=== PATIENT | female | born 1990 | race Caucasian/White ===

== ENCOUNTER 2017-12-13 17:08 | Emergency (ER) | payer MEDICAID, SELFPAY ==
[2017-12-13 17:09] VITALS: BP 103/60; PULSE 75; RESP 16; TEMP 37.4; O2SAT 99; BMI 29.2
--- NOTE | 2017-12-13 18:13 | ED.RN ---
rn in room to start iv and gather labs. Iv successful, pt asked not have the needle dug into her. As IV catheter was being inserted patient pulled back and Rn educated patient on the plastic catheter being larger then the needle it will hurt. Pt complaining nurse is digging needle , explained it is out. no blood being drawn. iv flushed with 10cc of ns and no redness, swelling or pain to patient at this time. told patient i would attempt blood from iv and not poking again. RN leaves room , on entering again pt pulled out iv and said i don't no want care from here i have the right to refuse and i am
--- NOTE | 2017-12-13 18:30 | ED.RN ---
this rn entered pt room to address pt concerns about the iv. pt voiced concerns that she didn't like where the iv was placed and took it out. informed pt that she would need to have another iv started if she chose to receive care. pt stated she understood and would allow this rn to attempt. this rn attempted to start an iv in the r hand, got initial blood return, and when the catheter was being advanced forward pt pulled her arm back and began yelling to take it out. informed pt another iv attempt would have to be made. pt states she cannot tolerate the catheter being advanced in her skin. informed pt this had to be done to insure catheter was in the vein. pt refused. stated she wanted to leave against medical advice. dr barrera to bedside. pt again voiced understanding, states she still wants to leave. pt signed ama papers and ambulated out of department without difficulty.
--- NOTE | 2017-12-14 00:33 | ED.VISSUMM ---
- ER Visit Summary Date of Service: 12/13/17 Chief Complaint: Vaginal bleeding History of Present Illness: The patient is a 27 F who had a 3 months ago. Patient states she had one. Approximate month ago that was very light. She started bleeding again last night with cramping and passing some clots. Bleeding has increased and states that she is bleeding through a pad in less than an hour. She felt somewhat lightheaded last evening. She states the press breaker at her HSE MANAGER's office advised her to come in. She currently has ParaGard. Physical Examination: Signs are unremarkable. She is not tachycardic. She is sitting upright in bed no acute distress. Heart is regular rate and rhythm. Lung sounds are clear. Abdomen is soft with no focal tenderness. scar is well-healed. Test Results: [] Emergency Department Course and Treatment: Plan had been to obtain blood work to evaluate for anemia as well as an ultrasound. When nursing staff started the IV patient became very anxious and pulled away. She claimed that the nurse was digging and causing severe pain and would not stop when asked. A second nurse went in to draw blood but had similar experience. At this time patient states that her anxiety is too bad and she needs to leave the emergency room. She understands that at this time I cannot evaluate her for anemia. Her vital signs are stable. She is encouraged to return if needed. I did speak with Dr. Gamboa, on-call for her HSE MANAGER office. I did recommend the patient call them tomorrow with an update on the degree of her bleeding. Treatment Plan: [] Disposition: AMA Impression: Menorrhagia This note was generated with [employer] dictation software. It may contain incorrect words, spelling, and punctuation that were not noted in review of the chart prior to signing ED Disposition - Plan for ED Patient: Disposition: Against Medical Advice Chief Complaint: Vag Bleeding Referrals: Care Physician,No Primary [Primary Care Provider] -
--- NOTE | 2017-12-14 00:36 | ED.DCSUM_ITS ---
- ER Visit Summary Date of Service: 12/13/17 Chief Complaint: Vaginal bleeding History of Present Illness: The patient is a 27 F who had a 3 months ago. Patient states she had one. Approximate month ago that was very light. She started bleeding again last night with cramping and passing some clots. Bleeding has increased and states that she is bleeding through a pad in less than an hour. She felt somewhat lightheaded last evening. She states the winchman/crane operator at her CLOTH PRINTER HELPER's office advised her to come in. She currently has ParaGard. Physical Examination: Signs are unremarkable. She is not tachycardic. She is sitting upright in bed no acute distress. Heart is regular rate and rhythm. Lung sounds are clear. Abdomen is soft with no focal tenderness. scar is well-healed. Test Results: [] Emergency Department Course and Treatment: Plan had been to obtain blood work to evaluate for anemia as well as an ultrasound. When nursing staff started the IV patient became very anxious and pulled away. She claimed that the nurse was digging and causing severe pain and would not stop when asked. A second nurse went in to draw blood but had similar experience. At this time patient states that her anxiety is too bad and she needs to leave the emergency room. She understands that at this time I cannot evaluate her for anemia. Her vital signs are stable. She is encouraged to return if needed. I did speak with Dr. Gamboa, on-call for her CLOTH PRINTER HELPER office. I did recommend the patient call them tomorrow with an update on the degree of her bleeding. Treatment Plan: [] Disposition: AMA Impression: Menorrhagia This note was generated with [employer] dictation software. It may contain incorrect words, spelling, and punctuation that were not noted in review of the chart prior to signing ED Disposition - Plan for ED Patient: Disposition: Against Medical Advice Chief Complaint: Vag Bleeding Referrals: Care Physician,No Primary [Primary Care Provider] -
== END 2017-12-13 18:38 | disposition left against medical advice (07) ==
LOC: ED 18:03
PROVIDERS: Emergency Provider Emergency Medicine
DX: N92.0 Excessive and frequent menstruation with regular cycle (principal); Z87.891 Personal history of nicotine dependence
CPT/HCPCS: 99282; A4216

== ENCOUNTER 2018-01-19 21:43 | Emergency (ER) | payer MEDICAID, SELFPAY ==
[2018-01-19 21:44] VITALS: BP 120/69; PULSE 66; RESP 16; TEMP 36.6; O2SAT 97; BMI 29.8
--- NOTE | 2018-01-19 22:00 | ED.VISSUMM ---
- ER Visit Summary Date of Service: 01/19/18 Chief Complaint: Dental pain History of Present Illness: The patient is a 27 F presents to the emergency department dental pain. Patient had this off and on for the past few years. She states she has a difficult time finding a dentist who will do sedation without local anesthesia first because she cannot do needles. She states that over the past month she has had increasing pain in the right lower jaw but over the past week it has worsened. She describes hot and cold sensitivity. She denies any fevers or chills. She has been taking Tylenol with some improvement. Physical Examination: Afebrile, vitals unremarkable. Well-appearing female no acute distress. Patient is widespread dental disease. There is significant cavity with complete erosion of the tooth #30. There is some tenderness in the gumline but no focal abscess. No Ventura angina. No trismus or stridor. Test Results: [] Emergency Department Course and Treatment: The patient has dental infection. I did summer camp counselor her she is likely going to need this tooth be extracted or this will continue to recur. There is no evidence of abscess or Ventura angina. The patient will be started on anti-inflammatories and antibiotics. She is counseled to follow-up with dentistry as this is going to need formal treatment. The patient will be discharged home. Treatment Plan: [] Disposition: Discharge Impression:. Periapical abscess tooth 30 This note was generated with [facility] dictation software. It may contain incorrect words, spelling, and punctuation that were not noted in review of the chart prior to signing ED Disposition - Plan for ED Patient: Chief Complaint: Dental Instructions: ED Cavity Dental Prescriptions: Naproxen [Naprosyn] 500 mg PO BID #20 tab Penicillin V Potassium 500 mg PO 4X/DAY #40 tab Referrals: Care Physician,No Primary [Primary Care Provider] -
[2018-01-19] MEDS: Naproxen 250 MG Tablet 500 MG PO (22:28)
[2018-01-19] MEDS: Penicillin Vk 250 MG Tablet 500 MG PO (22:28)
[2018-01-19 22:30] VITALS: BP 118/60; PULSE 62; RESP 18; O2SAT 96
== END 2018-01-19 22:30 | disposition home or self-care (01) ==
LOC: ED 22:12
PROVIDERS: Emergency Provider Emergency Medicine
DX: K04.7 Periapical abscess without sinus (principal); K08.89 Other specified disorders of teeth and supporting structures; Z72.0 Tobacco use
CPT/HCPCS: 99283

== ENCOUNTER 2018-02-21 05:07 | Emergency (ER) | payer MEDICAID, SELFPAY ==
[2018-02-21 05:09] VITALS: BP 137/75; PULSE 50; RESP 18; TEMP 36.4; O2SAT 99; BMI 30.9
--- NOTE | 2018-02-21 05:15 | ED.VISSUMM ---
- ER Visit Summary Date of Service: 02/21/18 Chief Complaint: Dental pain History of Present Illness: The patient is a 27 F presents to the emergency department with dental pain. Patient had the symptoms for months. She states she cannot find a dentist that does sedation for extraction. She states that the tooth that she had large cavity has finally broken off. She tried to remove with her fingers and had some bleeding and increasing pain. She is already on amoxicillin. She denies any trouble speaking or swallowing. She has not taken anything for her pain. Physical Examination: Relatively unremarkable. The patient does have some mild erythema at tooth 29 and 30. There is complete loss of tooth. There is no focal abscess. Submental space is soft. There is no low-grade angina. There was no trismus or stridor. Test Results: [] Emergency Department Course and Treatment: The patient has large cavity that was finally eroded. She is already on antibiotics. There is no Ventura angina. The patient will continue her antibiotics. She will be given 24 hours of analgesic pain control and anti-inflammatories. She was counseled that she needs to follow-up with dentistry to have formal extraction or she will continue to keep having issues. Treatment Plan: [] Disposition: Discharge Impression: 1. Dental pain This note was generated with [employer] dictation software. It may contain incorrect words, spelling, and punctuation that were not noted in review of the chart prior to signing ED Disposition - Plan for ED Patient: Chief Complaint: Dental Instructions: ED Tooth Pain Prescriptions: Naproxen [Naprosyn] 500 mg PO BID PRN #20 tab Referrals: Care Physician,No Primary [Primary Care Provider] -
[2018-02-21] MEDS: HYDROcodone Bitartrate/Apap 5/325 Tablet PO ×2 (05:24→05:25)
[2018-02-21 05:35] VITALS: RESP 18
== END 2018-02-21 05:35 | disposition home or self-care (01) ==
LOC: ED 05:31
PROVIDERS: Emergency Provider Emergency Medicine
DX: K02.9 Dental caries, unspecified (principal); K08.89 Other specified disorders of teeth and supporting structures; Z72.0 Tobacco use; Z79.2 Long term (current) use of antibiotics
CPT/HCPCS: 99283

== ENCOUNTER 2018-04-05 07:50 | Emergency (ER) | payer MEDICAID, SELFPAY ==
--- NOTE | 2018-04-05 07:50 | DT_ITS ---
This patient was seen during an EMR downtime April 03, 2018 - April 10, 2018. This patient may have a combination of paper and electronic documentation or all paper documentation. All documentation is viewable within the e-chart portion of [facility] for each patient visit.
== END 2018-04-05 08:20 | disposition home or self-care (01) ==
LOC: ED 04-06 16:11
PROVIDERS: Emergency Provider Emergency Medicine
DX: K02.9 Dental caries, unspecified (principal); K04.7 Periapical abscess without sinus
CPT/HCPCS: 99282

== ENCOUNTER 2018-07-06 18:21 | Emergency (ER) | payer MEDICAID, SELFPAY ==
[2018-07-06 18:22] VITALS: BP 122/72; PULSE 68; RESP 16; TEMP 36.8; O2SAT 95
--- NOTE | 2018-07-06 19:21 | ED.VISSUMM ---
- ER Visit Summary Date of Service: 07/06/18 Chief Complaint: Rash History of Present Illness: The patient is a 27 F with no primary care physician. She reports that she has a rash that began on the back of her head yesterday. It is now in her neck and her armpit. She denies any other symptoms. No fever, chills, nausea, vomiting, or other constitutional symptoms. Physical Examination: Vitals: Stable. Afebrile. General: Well-nourished and well-developed. Head: Normocephalic atraumatic. Neck: Supple, no lymphadenopathy. No JVD. Nontender. Cardiovascular: Regular rate and rhythm. No murmurs. Respiratory: No respiratory distress. Clear to auscultation bilaterally. Abdominal: Soft, nontender, nondistended, normal bowel sounds. No guarding, rebound, or peritoneal signs. Back: Nontender. Extremities: Nontender, no edema. Skin: Approximately dime sized superficial ulcers with minimal surrounding erythema in her hairline and posterior neck. There is no induration or fluctuance to suggest abscess.. Neurologic: Alert and oriented ?3. Cranial nerves II through XII are intact. Normal strength and sensation. Psych: Normal affect. Emergency Department Course and Treatment: She reports that multiple family members have a similar rash. They do have animals in the home. Treatment Plan: At this time I do not feel that patient needs to be placed on oral antibiotics. She will be given Bactroban ointment. Instructed to follow-up the [facility] in 3-5 days not improving. Return to the emergency department for any worsening symptoms. Disposition: To home in improved and stable condition. Impression: 1. Rash, uncertain cause. This note was generated with [employer] dictation software. It may contain incorrect words, spelling, and punctuation that were not noted in review of the chart prior to signing ED Disposition - Plan for ED Patient: Disposition: Home or Assisted Living Chief Complaint: Rash Instructions: ED Dermatitis Non Specific Rash Prescriptions: Mupirocin [Bactroban] 1 applic TOPICAL TID #1 tube Referrals: Carolyn Brown [NON-STAFF] - 2 Days for wound check
[2018-07-06 19:35] VITALS: BP 118/70; PULSE 65; RESP 14; O2SAT 98
== END 2018-07-06 19:41 | disposition home or self-care (01) ==
LOC: ED 19:11
PROVIDERS: Emergency Provider Emergency Medicine
DX: R21 Rash and other nonspecific skin eruption (principal)
CPT/HCPCS: 99282

== ENCOUNTER 2018-08-14 21:51 | Emergency (ER) | payer MEDICAID, SELFPAY ==
[2018-08-14 21:52] VITALS: BP 107/66; PULSE 70; RESP 16; TEMP 36.2; O2SAT 98; BMI 32.1
--- NOTE | 2018-08-14 22:09 | ED.VISSUMM ---
- ER Visit Summary Date of Service: 08/14/18 Chief Complaint: Dental pain History of Present Illness: The patient is a 28 F patient complains of left lower last molar dental pain. She was due to have it removed but missed her appointment secondary to insurance. She has no fever chills no difficulty swallowing. Physical Examination: Otherwise normal exam she has normal soft palate there is tenderness over the last molar on the left lower side. There is decay. No periapical abscess. Emergency Department Course and Treatment: Patient will be treated with penicillin and discharged with a prescription for penicillin and Naprosyn. Discharge stable condition Impression: [Odontalgia] This note was generated with [employer] dictation software. It may contain incorrect words, spelling, and punctuation that were not noted in review of the chart prior to signing ED Disposition - Plan for ED Patient: Disposition: Home or Assisted Living Chief Complaint: Dental Instructions: ED Tooth Pain Prescriptions: Naproxen [Naprosyn] 500 mg PO BID PRN #20 tab Penicillin Vk [Pen-Vee K 250MG] 250 mg PO 4X/DAY #40 tab Referrals: Care Physician,No Primary [Primary Care Provider] - 3-5 Days
--- NOTE | 2018-08-14 22:16 | ED.DCSUM_ITS ---
- ER Visit Summary Date of Service: 08/14/18 Chief Complaint: Dental pain History of Present Illness: The patient is a 28 F patient complains of left lower last molar dental pain. She was due to have it removed but missed her appointment secondary to insurance. She has no fever chills no difficulty swallowing. Physical Examination: Otherwise normal exam she has normal soft palate there is tenderness over the last molar on the left lower side. There is decay. No periapical abscess. Emergency Department Course and Treatment: Patient will be treated with penicillin and discharged with a prescription for penicillin and Naprosyn. Discharge stable condition Impression: [Odontalgia] This note was generated with [employer] dictation software. It may contain incorrect words, spelling, and punctuation that were not noted in review of the chart prior to signing ED Disposition - Plan for ED Patient: Disposition: Home or Assisted Living Chief Complaint: Dental Instructions: ED Tooth Pain Prescriptions: Naproxen [Naprosyn] 500 mg PO BID PRN #20 tab Penicillin Vk [Pen-Vee K 250MG] 250 mg PO 4X/DAY #40 tab Referrals: Care Physician,No Primary [Primary Care Provider] - 3-5 Days
[2018-08-14] MEDS: Penicillin Vk 250 MG Tablet 500 MG PO (22:17)
[2018-08-14 22:26] VITALS: RESP 17
== END 2018-08-14 22:26 | disposition home or self-care (01) ==
LOC: ED 22:24
PROVIDERS: Emergency Provider Emergency Medicine
DX: K08.89 Other specified disorders of teeth and supporting structures (principal); K02.9 Dental caries, unspecified
CPT/HCPCS: 99283

== ENCOUNTER 2018-08-25 13:18 | Emergency (ER) | payer MEDICAID, SELFPAY ==
[2018-08-25 13:19] VITALS: BP 111/65; PULSE 67; RESP 18; TEMP 36.5; O2SAT 97; BMI 31.8
--- NOTE | 2018-08-25 14:45 | ED.VISSUMM ---
- ER Visit Summary Date of Service: 08/25/18 Chief Complaint: Psychiatric evaluation History of Present Illness: The patient is a 28 F presenting for a psychiatric evaluation. Patient states that today she was in a court proceedings where she had child protective services take her 5 children from her. She reports that she was feeling down about this. She was at the library, and posted something on Facebook that she wanted to end her life. Apparently [employer] called police, police arrived, and the patient was brought for further evaluation. Patient states that she was looking for attention and in no way shape or form is suicidal. She is not intoxicated denies any ingestions currently. She is never had any prior suicide attempts. Physical Examination: Vital signs are within normal limits, patient is afebrile. General: Patient is well-nourished well-developed and in no acute distress. Head: Normocephalic, atraumatic Eyes: Pupils equal round and reactive bilaterally, extra occular motion intact bialterally ENT: Moist mucous membranes Neck: Supple, no lymphadenopathy, no JVD, no meningismus CVS: Heart regular rate and rhythm, no murmurs, rubs or gallops, radial pulses 2+ bilaterally Resp: Respirations nondistressed, lung sounds clear bilaterally Abdomen: Soft, nontender, nondistended, no palpable masses, normal bowel sounds Back: Nontender Extremities: Nontender, atraumatic, active full range of motion, no peripheral edema Skin: warm, no rashes, no petechia Neuro: Alert and oriented x 4, CN 2-12 intact, no lateralizing neurological defecits Psyc: Normal affect, no suicidal or homicidal ideation, good insight and good judgment Test Results: None indicated Emergency Department Course and Treatment: Patient presented for psychiatric evaluation. Patient appears lucid, is not intoxicated, has good insight and good judgment, and I do not feel that she is a risk to herself or others at this point. I do not believe that workup or discussion with crisis is necessary at this point. Patient was discharged. Disposition: Discharge Impression: 1. Adjustment disorder This note was generated with [employer] software. It may contain incorrect words, spelling, and punctuation that were not noted in review of the chart prior to signing ED Disposition - Plan for ED Patient: Disposition: Home or Assisted Living Chief Complaint: Suicidal Diagnosis: Adjustment disorder Instructions: ED Adjustment Disorder Additional Instructions: Followup as needed
[2018-08-25 15:17] VITALS: BP 112/68; PULSE 65; RESP 17; RESP 18; O2SAT 100
== END 2018-08-25 15:18 | disposition home or self-care (01) ==
PROVIDERS: Emergency Provider Emergency Medicine
DX: F43.20 Adjustment disorder, unspecified (principal)
CPT/HCPCS: 99283

== ENCOUNTER 2018-12-02 05:01 | Emergency (ER) | payer MEDICAID, SELFPAY ==
[2018-12-02 05:02] VITALS: BP 116/75; PULSE 65; RESP 24; TEMP 36.8; O2SAT 94; BMI 32.5
[2018-12-02 05:05] VITALS: BP 116/75; PULSE 65; RESP 24; TEMP 36.8; O2SAT 94
--- NOTE | 2018-12-02 05:24 | RAD_ITS ---
STUDY: X-RAY CHEST REASON FOR EXAM: Female, 28 years old. Cough TECHNIQUE: 2 views COMPARISON: None. FINDINGS: There are patchy acinar densities in the right lower lobe suggestive of a pneumonia. The left lung is clear. The heart is normal. There are no pleural effusions. Normal visualized thoracic spine. Normal visualized ribs, clavicles, and shoulders. There is no demonstrated abnormality of the visualized soft tissue structures of the upper abdomen. RAD/Chest PA and Lateral IMPRESSION: Early changes of right lower lobe pneumonia Electronically Signed: Dileep Gallegos MD at 6:32 EST Tel , Service support ,
--- NOTE | 2018-12-02 05:31 | ED.VISSUMM ---
- ER Visit Summary Date of Service: 12/02/18 Chief Complaint: Cough History of Present Illness: The patient is a 28 F presents to the emergency department with shortness of breath and cough. Patient states that symptoms began on Tuesday when she developed a hoarse voice that was very deep. She then developed a cough and then began to have phlegm. She had a headache which was resolved. No rhinorrhea. She notes chills but no fevers. He is a non-smoker. Physical Examination: Afebrile vital signs stable Gen: Well-nourished well-developed Head: Normocephalic atraumatic Eyes: Perrl EOMI ENT: TMs clear no rhinorrhea moist mucous membranes Neck: Supple no lymphadenopathy no JVD nontender CVS: Regular rate rhythm no murmurs normal S1-S2 Respiratory: No distress diminished breath sounds bilaterally. Slight rhonchi that improve with cough chest nontender Abdomen: Soft nontender nondistended normal bowel sounds no masses Back: Nontender Extremity: Nontender no edema Skin: Normal color no rash Neuro: alert orientated ?3 CN II-XII intact normal strength sensation reflexes gait cerebellar Psych: Normal affect normal mood Test Results: Two-view chest x-ray was obtained. This demonstrated increased markings in the right upper lobe when compared to October 08, 2017. Emergency Department Course and Treatment: Patient received a breathing treatment. Her lung sounds are improved and her coughing is somewhat decreased. Patient will be treated as a community-acquired pneumonia. I believe she can be safely discharged home and treated there. I will write for albuterol MDI as well as doxycycline. Impression: 1. Pneumonia This note was generated with [employer] dictation software. It may contain incorrect words, spelling, and punctuation that were not noted in review of the chart prior to signing ED Disposition - Plan for ED Patient: Disposition: Home or Assisted Living Instructions: ED Pneumonia Adult Prescriptions: Albuterol Inhaler [Ventolin Hfa] 2 puff INHALATION Q4H PRN PRN #1 inhaler PRN Reason: Wheezing Doxycycline 100 mg PO BID #19 cap Referrals: Flip Small MD [STAFF PHYSICIAN] - 1 Week if not improving
[2018-12-02] MEDS: Ipratropium/Albuterol Sulfate 3 ML AMPUL.NEB INHALATION (05:36)
[2018-12-02 05:39] VITALS: PULSE 78; RESP 22
[2018-12-02] MEDS: Doxycycline 100 MG CAPSULE PO (06:25)
[2018-12-02 06:29] VITALS: RESP 16
== END 2018-12-02 06:29 | disposition home or self-care (01) ==
PROVIDERS: Emergency Provider Emergency Medicine
DX: J18.9 Pneumonia, unspecified organism (principal)
CPT/HCPCS: 71046; 94640; 99283

== ENCOUNTER 2019-11-29 18:39 | Emergency (ER) | payer MEDICAID, SELFPAY ==
[2019-11-29 18:40] VITALS: BP 140/70; PULSE 106; RESP 18; TEMP 35.9; O2SAT 98; BMI 32.5
--- NOTE | 2019-11-29 19:45 | RAD_ITS ---
STUDY: X-RAY CHEST REASON FOR EXAM: Female, 29 years old. Cough. Back pain when coughing and taking deep breaths. TECHNIQUE: PA and lateral views of the chest. COMPARISON: December 02, 2018. FINDINGS: The lungs are clear and expanded. There is no demonstrated pleural abnormality. Normal size heart. Normal mediastinum and cory. Normal visualized pulmonary arteries. Normal visualized aortic arch and descending thoracic aorta. Normal visualized thoracic spine. Normal visualized ribs, clavicles, and shoulders. There is no demonstrated abnormality of the visualized soft tissue structures of the upper abdomen. RAD/Chest PA and Lateral IMPRESSION: No acute cardiopulmonary disease. Electronically Signed: Armin Culp DO at 20:22 EST Tel [phone], Service support ,
--- NOTE | 2019-11-29 20:44 | ED.DCSUM_ITS ---
- ER Visit Summary Date of Service: 11/29/19 Chief Complaint: [Back pain] History of Present Illness: The patient is a 29 F [presents the emergency department with complaint of back pain that started last evening. Patient states that she was watching Netflix with a pillow propped behind her head and she developed a headache and subsequently developed pain in her neck and upper back. Patient took some Tylenol which resolved her headache but she continues to have pain in her neck and back when she moves. She denies any injury. She denies any paresthesias in the arms or legs. Patient also states that today she developed a sore throat and a runny nose as well as a cough. Eyes any fevers. Patient has no medical history.] Physical Examination: [HEENT-PERRLA, EOMI. Cranial nerves II through XII grossly intact. TMs clear. Mucous membranes moist. No adenopathy. No pharyn geal erythema noted. No exudates. Patient's tonsils have been removed. She has no anterior cervical lymphadenopathy noted. Cardiovascular-regular rate and rhythm without murmur or ectopy Lungs-clear to auscultation, chest wall stable without crepitus or subcu emphysema Abdomen-normoactive bowel sounds, soft, nontender, no rebound or rigidity, no peritoneal signs. Back exam-patient has tenderness palpation over the cervical paraspinal musculature as well as the thoracic and lumbar paraspinal musculature that seems to reproduce her pain. She has no bony tenderness on the thoracic or lumbar vertebrae. Negative straight leg raises. Deep tendon reflexes are plus 2 out of 4 bilaterally at the patella and Achilles. Patient has normal 5 extension. Extremities-intact ?4, normal range of motion, normal pulses, atraumatic] Test Results: [X-ray obtained was normal.] Emergency Department Course and Treatment: [Patient was ordered Toradol which she refused. I was I did give her ibuprofen and Norflex IM.] Treatment Plan: [Patient will be given a prescription for Naprosyn, Flexeril, and [place] for severe pain. Patient advised to follow-up with her primary care physician within next 3 to 5 days. I suspect she likely has a viral URI developing as well as back spasms.] Disposition: [Discharged home in stable condition] Impression: [Viral URI Atraumatic back pain/spasms This note was generated with [employer] dictation software. It may contain incorrect words, spelling, and punctuation that were not noted in review of the chart prior to signing ED Disposition - Plan for ED Patient: Referrals: Care Physician,No Primary [Primary Care Provider] -
--- NOTE | 2019-11-29 20:47 | DCINST.ED_ITS ---
ED Disposition - Plan for ED Patient: Instructions: BACK SPASM, No Trauma, URI, Viral, No Abx (Adult) Prescriptions: cycloBENZAPRine HCl [Flexeril] 10 mg PO TID PRN #20 tab PRN Reason: Muscle Spasm Prescription Printed Naproxen [Naprosyn] 500 mg PO BID PRN #20 tab Prescription Printed Hydrocodone Bitart/Apap 5-325 [[place] 5MG-325MG] 1 tab PO Q4H PRN PRN 2 Days #10 tab PRN Reason: Pain Prescription Printed Referrals: Care Physician,No Primary [Primary Care Provider] - 3-5 Days
[2019-11-29] MEDS: Ibuprofen 400 MG Tablet 800 MG PO (21:00)
[2019-11-29 21:03] VITALS: PULSE 87; RESP 16; O2SAT 100
== END 2019-11-29 21:04 | disposition home or self-care (01) ==
PROVIDERS: Emergency Provider Emergency Medicine
DX: J06.9 Acute upper respiratory infection, unspecified (principal); M54.9 Dorsalgia, unspecified; M62.838 Other muscle spasm
CPT/HCPCS: 71046; 99282

== ENCOUNTER 2020-06-28 16:59 | Emergency (ER) | payer MEDICAID, SELFPAY ==
[2020-06-28 17:00] VITALS: BP 146/85; PULSE 62; RESP 18; TEMP 36.9; O2SAT 99; BMI 36.8
--- NOTE | 2020-06-28 17:15 | EKG12_ITS ---
Test Reason : CP Blood Pressure : / mmHG Vent. Rate : 080 BPM Atrial Rate : 068 BPM P-R Int : 160 ms QRS Dur : 086 ms QT Int : 388 ms P-R-T Axes : -07 043 007 degrees QTc Int : 447 ms Sinus rhythm with sinus arrhythmia with occasional Premature ventricular complexes Nonspecific ST abnormality Abnormal ECG Confirmed by KEREN ESPARZA, VIVIEN ([id number]), proposal editor PETER MUSE ([id number]) on 06/30/2020 2:03:22 PM Referred By: Confirmed By:VIVIEN VELIZ MD
--- NOTE | 2020-06-28 17:15 | RAD_ITS ---
STUDY: X-RAY CHEST REASON FOR EXAM: Female, 29 years old. Chest pain. TECHNIQUE: Single frontal view of the chest. COMPARISON: 11/29/2019. FINDINGS: There is no new focal consolidation. Normal size heart. Normal mediastinum and cory. Normal visualized pulmonary arteries. Normal visualized aortic arch and descending thoracic aorta. Normal visualized thoracic spine. Normal visualized ribs, clavicles, and shoulders. There is no demonstrated abnormality of the visualized soft tissue structures of the upper abdomen. RAD/Chest 1 View (Portable) IMPRESSION: No acute cardiopulmonary process. Electronically Signed: Anahy Guillory MD at 18:53 EDT Tel , Service support ,
--- NOTE | 2020-06-28 17:37 | ED.VISSUMM ---
- ER Visit Summary Date of Service: 06/28/20 Chief Complaint: Chest pain History of Present Illness: The patient is a 29 F with no primary care physician. She reports approximately 230 this afternoon she developed sharp substernal chest pain. States that it came on suddenly. Is been constant since that time. 7 on 10 at worst and 4-10 currently. Is worsened by breathing. Is relieved by rest and Tylenol. States that it radiates to her left shoulder and below her left breast. She does report that she feels mildly short of breath with this. She denies any associated nausea, vomiting, or diaphoresis. Patient reports that the onset of this she was standing up doing laundry and was lightheaded. She sat down. She reports that she may have had a syncopal episode. She believes this because a coworker told her boss that she fell asleep. Patient reports that she did not fall asleep and she has not tired. She denies any injury from this. Patient does have a family history of factor V Leiden deficiency. She has an IUD in place. There is no recent travel. She does not smoke. She denies ankle swelling or calf pain. Physical Examination: Vitals: Stable. Afebrile. General: Well-nourished and well-developed. Head: Normocephalic atraumatic. Neck: Supple, no lymphadenopathy. No JVD. Nontender. Cardiovascular: Regular rate and rhythm. No murmurs. Respiratory: No respiratory distress. Clear to auscultation bilaterally. Abdominal: Soft, nontender, nondistended, normal bowel sounds. No guarding, rebound, or peritoneal signs. Back: Nontender. Extremities: Nontender, no edema. Skin: Normal color, no rash. Neurologic: Alert and oriented ?3. Cranial nerves II through XII are intact. Normal strength and sensation. Psych: Normal affect. Test Results: EKG is sinus at [address] changes. She does have PVCs present. Normal intervals. No evidence of HOCM or Brugada syndrome. This is unchanged from 2017. CBC shows an H&H 11.3 and 35.1. Chem-7 shows a glucose 125. TSH is normal. Magnesium is normal. test is negative. D-dimer is 0.67. Clinical Impression(s) from Imaging Studies Chest X-Ray 06/28/20 17:15 IMPRESSION: No acute cardiopulmonary process. Electronically Signed: Anahy Guillory MD at 18:53 EDT Tel , Service support , Chest CTA 06/28/20 18:35 IMPRESSION: Within normal limits CTA chest examination, without a demonstrated pulmonary embolism or arterial dissection. Electronically Signed: Anayh Guillory MD at 20:05 EDT Tel , Service support , Emergency Department Course and Treatment: I reviewed the patient's records. She had an episode of ventricular bigeminy and in July 2017 while she was . She was to have a Holter monitor and follow-up for an echocardiogram. She left AMA at that time and reports she did not seek further evaluation. Treatment Plan: Patient was discussed with Dr. Watkins. She will be discharged with a 48-hour Holter monitor instructed to follow-up in the office in 2 weeks for another exam. Return to the emergency department for any worsening symptoms. Disposition: To home in improved and stable condition. Impression: 1. PVCs. 2. Atypical chest pain. This note was generated with [employer] dictation software. It may contain incorrect words, spelling, and punctuation that were not noted in review of the chart prior to signing ED Disposition - Plan for ED Patient: Instructions: Premature Ventricular Contractions Referrals: Francisco Watkins MD [STAFF PHYSICIAN] - 1-2 Weeks
[2020-06-28 17:49] VITALS: O2SAT 100
[2020-06-28 17:49] LABS: Absolute Lymphocyte Count 1.97 X10^3/uL (0.83-4.51); Absolute Neutrophil Count 5.4 X10^3/uL (2.0-7.7); Basophil# 0.04 X10^3/uL; Basophil% 0.5 % (0-1); Eosinophil# 0.27 X10^3/uL; Eosinophils% 3.3 % (0-5); Hematocrit 35.1 % (37-47); Hemoglobin 11.3 g/dL (12.0-15.0); Lymphocyte # 1.97 X10^3/ul (4.0); Lymphocyte % 23.9 % (19-41); Mean Corp Hgb Conc 32.2 g/dL (32-36); Mean Corpuscular Hgb 24.2 pg (27.0-32.0); Mean Corpuscular Volume 75.2 fL (81-99); Mean Platelet Vol. 12.5 fl (6.2-12.0); Monocyte# 0.48 X10^3/uL; Monocyte% 5.8 % (0-10); NRBC Flagged by Analyzer 0 % (0-5); Neutrophil # 5.44 X10^3/uL (2.7-7.7); Neutrophil % 66.1 % (47-70); POSITIVE COUNT YES; Platelet Count 170 K/mm3 (150-450); RBC Distribution Width CV 15.9 % (11.6-14.6); RBC Distribution Width SD 43.4 fl (35.1-43.9); Red Blood Count 4.67 M/mm3 (4.2-5.4); White Blood Count 8.2 K/mm3 (4.4-11.0)
[2020-06-28] MEDS: 0.9% Normal Saline 1,000 ML 1000 ML IV (17:51)
[2020-06-28 18:00] VITALS: BP 120/67; BP 121/78; BP 129/76; PULSE 73; PULSE 78
[2020-06-28 18:04] LABS: Internal QC Validated? YES +Cl - CLEAR BKGD; Pregnancy, Serum, hCG Quali. NEGATIVE Negative
[2020-06-28 18:11] LABS: Anion Gap 6 (5-15); BUN 12 mg/dL (7-18); BUN/Creat Ratio 18.5 RATIO (10-20); Calcium,Total 8.9 mg/dL (8.5-10.1); Chloride 107 mmol/L (98-107); Creatinine, Serum 0.65 mg/dL (0.55-1.02); EST Glomerular Filtration Rate 113 mL/min (>60); Est Glom Filt Rate - Afr Amer 136 mL/min (>60); Estimated Creatinine Clearance 108.29 ml/min; Glucose 125 mg/dL (74-106); Potassium 3.8 mmol/L (3.5-5.1); Sodium Level 138 mmol/L (136-145); Thyroid Stim Hormone (TSH) 2.05 uIU/mL (0.358-3.74)
[2020-06-28 18:19] LABS: D-Dimer Quantitative (DVT/PE) 0.67 FEU/ug/m (0.27-0.49)
--- NOTE | 2020-06-28 18:35 | CT_ITS ---
STUDY: CTA CHEST REASON FOR EXAM: Female, 29 years old. Chest pain SINCE 1445, HX ARRYTHMIA, ELEVATED D-DIMER RADIATION DOSAGE (If Supplied By Facility): CTDIvol = ( 14.82 ) mGy, DLP = ( 553.79 ) mGycm TECHNIQUE: The examination was performed with the intravenous administration of IV 100mL Isovue-370. Post-processing of the angiographic images was performed, with multiplanar reformation and 3D reconstruction. Individualized dose optimization techniques were used for this CT. COMPARISON: None. FINDINGS: Normal enhancement of the main pulmonary artery and right and left pulmonary arteries. Normal enhancement of the bilateral peripheral pulmonary arteries. There is no demonstrated pulmonary embolism. Normal thoracic aorta and visualized great vessels. There is no demonstrated aortic dissection. Normal heart and pericardium. Normal mediastinum. Normal hilar regions. Normal visualized trachea and bronchi. The lungs are well expanded. Normal pulmonary parenchyma. Normal pleura. Normal chest wall structures. Normal osseous structures. Normal visualized upper abdomen. CT/CTA Chest W/WO Contrast IMPRESSION: Within normal limits CTA chest examination, without a demonstrated pulmonary embolism or arterial dissection. Electronically Signed: Anahy Guillory MD at 20:05 EDT Tel , Service support ,
[2020-06-28 19:02] VITALS: BP 149/80; RESP 18; O2SAT 100
[2020-06-28 19:50] VITALS: BP 126/77; PULSE 71; RESP 21; O2SAT 100
--- NOTE | 2020-06-28 19:55 | CM.ED ---
Social Work Consult: No Primary Care Physician Informant: Self-Referral Met with patient in room. Introduced self and community mental health social worker role. Patient agreeable to speaking with this community mental health social worker. Patient confirms to not have a primary care physician and to not have had a doctor since last three years ago. Patient states to have 5 children between the ages of 3 and 11. Patient states to be a , patient spouse was from a car accident in December 2018. Patient states to have an active counselor through [facility] that patient sees weekly. Patient denies any suicidal thoughts/plans/intents. Patient states to have needed support from family and friends. 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 Patient denies any community needs/services. Patient is open to this community mental health social worker providing patient with a list of primary care physicians that are in-network with patient insurance. Active listening and support provided. Renard ALMANZA, LENNY
[2020-06-28 20:46] VITALS: BP 149/80; PULSE 70; RESP 20; O2SAT 100
== END 2020-06-28 20:47 | disposition home or self-care (01) ==
PROVIDERS: Emergency Provider Emergency Medicine
DX: I49.3 Ventricular premature depolarization (principal); R07.9 Chest pain, unspecified; R00.2 Palpitations
CPT/HCPCS: 71045; 71275; 80048; 83735; 84443; 84484; 84703; 85025; 85379; 93005; 93225; 93226; 96360; 96361; 99285; J7030; Q9967; A4216

== ENCOUNTER → 2020-06-28 20:48 | Outpatient (CLI) | payer MEDICAID, SELFPAY ==
[2020-06-28 17:00] VITALS: BMI 36.8
== END ==
PROVIDERS: Visit Provider Emergency Medicine
DX: R00.2 Palpitations (principal)
CPT/HCPCS: 93225; 93226

== ENCOUNTER → 2020-07-15 11:14 | Outpatient (CLI) | payer MEDICAID, SELFPAY ==
[2020-06-30 14:10] VITALS: BMI 36.8
--- NOTE | 2020-07-15 19:18 | STRESSREP_ITS ---
Stress Test Report Date: 07-15-2020 Procedure: Exercise tolerance test Indications: Shortness of breath/dyspnea on exertion; PVCs Consent: Per the patient Procedure: The patient exercised on a Mook protocol for 9 minutes and 46 seconds completing Stage III and 46 seconds of Stage IV achieving a peak heart rate of 162 bpm (86 % predicted maximal heart rate) with a peak blood pressure 138/80 mmHg and a peak MET capacity of approximately 11 MET's. The baseline ECG demonstrated sinus rhythm; nonspecific ST segment abnormality. The peak exercise ECG demonstrated no obvious ECG changes. There were no cardiac dysrhythmias pretest, during exercise, or recovery. The functional capacity was considered good. The patient had no complaint of chest discomfort during exercise or recovery. The examination was discontinued secondary to dyspnea and leg discomfort. Impression: 1. Technically adequate (percent predicted maximal heart rate greater than 85%) exercise tolerance test 2. Peak exercise ECG with with no obvious ECG changes 3. There were no cardiac dysrhythmias during exercise or recovery This note was generated with [employer] software. It may contain incorrect words, spelling, and punctuation that were not noted in checking the note before signing.
== END ==
PROVIDERS: Referring Provider Internal Medicine Cardiovascular Disease; Visit Provider Internal Medicine Cardiovascular Disease
DX: I49.3 Ventricular premature depolarization (principal); R00.2 Palpitations; R07.89 Other chest pain
CPT/HCPCS: 93017

== ENCOUNTER 2020-07-17 10:23 | Outpatient (RCR) | payer MEDICAID, SELFPAY ==
[2020-06-30 14:10] VITALS: BMI 36.8
== END 2020-07-30 23:59 ==
LOC: NS 10:23
PROVIDERS: Visit Provider Internal Medicine Cardiovascular Disease
DX: Z71.3 Dietary counseling and surveillance (principal); E66.9 Obesity, unspecified; Z68.36 Body mass index [BMI] 36.0-36.9, adult
CPT/HCPCS: 97802

== ENCOUNTER 2020-08-14 13:18 | Outpatient (RCR) | payer MEDICAID, SELFPAY ==
[2020-06-30 14:10] VITALS: BMI 36.8
== END 2020-08-14 23:59 | disposition home or self-care (01) ==
LOC: NS 13:18
PROVIDERS: Visit Provider Internal Medicine Cardiovascular Disease
DX: Z71.3 Dietary counseling and surveillance (principal); E66.9 Obesity, unspecified; Z68.36 Body mass index [BMI] 36.0-36.9, adult
CPT/HCPCS: 97803

== ENCOUNTER 2022-05-03 01:26 | Emergency (ER) | payer MEDICAID, SELFPAY ==
[2022-05-03 01:26] VITALS: BP 134/87; PULSE 90; RESP 18; TEMP 36.4; O2SAT 98; BMI 36.6
--- NOTE | 2022-05-03 01:43 | EX.ED.VIS.UR ---
HPI HPI - URI History of Present Illness Chief Complaint: Sore Throat Informant: patient Onset/Context/Timing Onset: Days (1) Context: Gradual Onset Timing: Continuous Quality: congested, hoarse, cough, ST, congestion Current Severity: Moderate Maximum Severity: Moderate Associated Symptoms Associated Symptoms: Positive for Nasal Congestion and Nonproductive cough; Negative for Headache, Sinus Pressure, Myalgias, Nausea, Vomiting, Shortness of Breath or Chest Pain Narrative Narrative: URI symptoms for this past day. States that her boyfriend has been smoking a lot in front of her and she thinks she may be allergic to smoke. She has a history of some mild asthma but this illness has not been making her wheeze. No fevers or chills or myalgias or headaches. No exposures to COVID that she knows of, she is unvaccinated. Coarse but not dyspneic. ROS ROS ED Constitutional Constitutional ED: Denies chills or fever(s) ENT ENT ED: Reports hoarseness, nasal congestion, rhinorrhea and sore throat; Denies ear pain Cardiovascular Cardiovascular: Denies chest pain or palpitations Respiratory/Chest Respiratory/Chest: Reports cough; Denies dyspnea Gastrointestinal Gastrointestinal: Denies abdominal pain, diarrhea, nausea or vomiting Genitourinary Genitourinary ED: Denies dysuria or hematuria Musculoskeletal Musculoskeletal: Denies myalgias or neck pain Integumentary Denies abscess or rash Neurologic Neurologic: Denies headache(s), paresthesias or weakness Psychiatric Psychiatric: Denies depression or suicidal thoughts Endocrine Endocrinology: Denies polydipsia or polyuria [facility] Medical History (Updated 05/03/22 @ 01:[address] Pierce Lewis MD) Asthma Chest pain, atypical Premature ventricular contraction Home Medications benzonatate 100 mg capsule 200 mg PO TID PRN PRN Cough #20 CAPSULES 05/03/22 [Rx Last Taken Unknown] Allergy/AdvReac Type Severity Reaction Status Date / Time coconut Allergy Hives Verified 05/03/22 01:30 diphenhydramine HCl Allergy Hives Verified 05/03/22 01:30 [From Benadryl] sweet potato Allergy Swelling Verified 05/03/22 01:30 Family History Mother CVA (cerebral vascular accident) Surgical History H/O adenoidectomy History of section Social History Smoking Status: Never smoker alcohol intake: never substance use type: does not use caffeine: Yes Type: carbonated beverages Number of servings: 1 EXAM Physical Exam Const Vital Signs: 05/03/22 01:26 Temperature 97.6 F L Temperature Source Oral Pulse Rate 90 Respiratory Rate 18 Blood Pressure 134/87 H Blood Pressure Mean 102 Pulse Ox 98 Oxygen Delivery Method Room Air Positive well nourished, well developed and obese General Appearance ED: well developed and NAD Nutritional Appearance: obese HEENT Reports moist mucous membranes HEENT Narrative: No trismus, no stridor, no posterior oropharyngeal or tonsillar exudate/asymmetry. Maybe mild posterior oropharyngeal erythema only. No cobblestoning. No petechia. Hoarseness of voice. normocephalic and atraumatic Throat: Negative for posterior oropharynx abnormal Eyes PERRL and EOMs intact bilaterally Neck no lymphadenopathy, supple and no meningeal signs General: Negative for anterior neck swelling Resp normal respiratory effort and clear to auscultation bilaterally Cardio no murmurs Rate: regular rate Rhythm: regular rhythm Neuro oriented x3, CN's II-XII intact bilaterally and no sensory deficits noted Sensorium / Orientation: alert Motor Exam: strength 5/5 throughout Skin Lesions: no lesions Rashes: no rashes MDM MDM MDM Narrative Medical decision making narrative: Patient states she is concerned she may have laryngitis. I think she may have that, but it is likely viral. I offered a COVID test she does not want it. Supportive care advised, no antibiotics indicated, and she meets no criteria for strep throat so I do not think she needs a swab there. She was given some medications here and a prescription for Tessalon Perles. Discharge Plan Triage Chief Complaint: Sore Throat ED Provider: Pierce Lewis Dx/Rx/DC Orders Clinical Impression: Viral URI with cough Instructions: ED URI, Viral, No Abx (Adult) Prescriptions: New benzonatate [benzonatate] 100 MG capsule 200 mg PO TID PRN PRN (Reason: Cough) Qty: 20 0RF Primary Care Provider: Care Physician,No Primary Referrals: Carolyn Brown [NON-STAFF] - 10-14 Days if not better Care Physician,No Primary [Primary Care Provider] - Disposition Disposition: Home, Self Care
[2022-05-03 01:51] VITALS: PULSE 74; RESP 20; O2SAT 98
[2022-05-03] MEDS: guaiFENesin CF 120 ML 10 ML PO (01:52)
[2022-05-03] MEDS: Ibuprofen 600 MG Tablet PO (01:52)
== END 2022-05-03 02:08 | disposition home or self-care (01) ==
PROVIDERS: Emergency Provider Emergency Medicine; Visit Provider Emergency Medicine
DX: J06.9 Acute upper respiratory infection, unspecified (principal); E66.9 Obesity, unspecified
CPT/HCPCS: 99283

== ENCOUNTER 2022-05-09 09:23 | Emergency (ER) | payer MEDICAID, SELFPAY ==
[2022-05-09 09:24] VITALS: BP 142/75; PULSE 77; RESP 16; TEMP 36.6; O2SAT 99; BMI 34.3
--- NOTE | 2022-05-09 09:33 | RAD_ITS ---
STUDY: X-RAY - LEFT FOOT CLINICAL: Female, 31 years old. injury pt tripped over something last night, foot pain now TECHNIQUE: 3 view(s) of the foot. COMPARISON: None. FINDINGS: A small 3.9 mm triangle shaped calcific/radiopaque density is seen in the plantar soft tissues in the mid foot region, only on the lateral view. This is presumed to represent soft tissue calcification, but correlate if there is concern for foreign body. No subcutaneous gas is present. Normal talus, calcaneus, and tarsal bones. Normal visualized subtalar, talonavicular, calcaneocuboid, tarsal and tarsometatarsal articulations. Normal metatarsi. Normal metatarsophalangeal joint of the great toe. Normal tibial and fibular sesamoid bones. Normal interphalangeal joint of the great toe. Normal phalanges of the great toe. Normal second through fifth metatarsophalangeal joints. Normal interphalangeal joints and phalanges of the lesser toes. The soft tissue structures are unremarkable. There is no demonstrated fracture. RAD/Foot min 3 Views IMPRESSION: 1. A small 3.9 mm triangle shaped calcific/radiopaque density is seen in the plantar soft tissues in the mid foot region, only on the lateral view. This is presumed to represent soft tissue calcification, but correlate if there is concern for foreign body. 2. No subcutaneous gas is present. Electronically Signed: Selwyn Workman MD at 10:29 EDT ,
--- NOTE | 2022-05-09 09:33 | RAD_ITS ---
STUDY: X-RAY - LEFT TIBIA AND FIBULA REASON FOR EXAM: Female, 31 years old. pt tripped over something last night, pain now in lower leg TECHNIQUE: 3 view(s) of the tibia and fibula were obtained. COMPARISON: None. FINDINGS: Normal visualized tibia. Normal visualized fibula. There is no demonstrated acute fracture. The soft tissue structures are unremarkable. RAD/Tibia & Fibula 2 Views IMPRESSION: Normal x-ray examination of the tibia and fibula. Electronically Signed: Selwyn Workman MD at 10:30 EDT ,
--- NOTE | 2022-05-09 09:34 | ED.VIS.LOWEX ---
HPI History of Present Illness Chief Complaint: Lower Extremity Injury Informant: patient Narrative Narrative: 31-year-old female states that last nightOver her cat. She states that that she she has pain on the bottom of her foot in the midfoot. She also notes some pain at the fibular head. Patient denies any other injuries. She states its been difficult for her to bear any weight. PFSH PFS Medical History Asthma Chest pain, atypical Premature ventricular contraction Home Medications benzonatate 100 mg capsule 200 mg PO TID PRN PRN Cough #20 CAPSULES 05/03/22 [Rx Last Taken Unknown] Allergy/AdvReac Type Severity Reaction Status Date / Time coconut Allergy Hives Verified 05/09/22 09:26 diphenhydramine HCl Allergy Hives Verified 05/09/22 09:26 [From Benadryl] sweet potato Allergy Swelling Verified 05/09/22 09:26 sertraline [From Zoloft] AdvReac Other Verified 05/09/22 09:26 Family History Mother CVA (cerebral vascular accident) Surgical History H/O adenoidectomy History of section Social History Smoking Status: Never smoker alcohol intake: never substance use type: does not use caffeine: Yes Type: carbonated beverages Number of servings: 1 ROS ROS ED Constitutional Constitutional ED: Denies chills or weight loss Eyes Eyes: Denies change in vision or diplopia ENT ENT ED: Denies ear pain, rhinorrhea or sore throat Cardiovascular Cardiovascular: Denies chest pain, orthopnea, palpitations or racing heartbeat Respiratory/Chest Respiratory/Chest: Denies cough, dyspnea or orthopnea Gastrointestinal Gastrointestinal: Denies abdominal pain, diarrhea, nausea or vomiting Genitourinary Genitourinary ED: Denies dysuria, hematuria or urinary frequency Musculoskeletal Musculoskeletal: Reports other Details: See history of present illness ; Denies arthralgias, back pain, myalgias or neck pain Integumentary Denies abscess or rash Neurologic Neurologic: Denies headache(s) or weakness Psychiatric Psychiatric: Denies anxiety, depression, suicidal ideation or suicidal thoughts Endocrine Endocrinology: Denies polydipsia, polyphagia or polyuria Allergic/Immunologic Allergic/Immunologic ED: Denies mouth swelling, tongue swelling or urticaria EXAM Physical Exam Const Vital Signs: 05/09/22 09:24 Temperature 98 F Temperature Source Temporal Pulse Rate 77 Respiratory Rate 16 Blood Pressure 142/75 H Blood Pressure Mean 97 Pulse Ox 99 Oxygen Delivery Method Room Air Positive well nourished and well developed General Appearance ED: well developed HEENT Reports normocephalic, head/scalp atraumatic and moist mucous membranes Eyes PERRL and EOMs intact bilaterally Neck no lymphadenopathy, supple and no JVD Resp normal respiratory effort and clear to auscultation bilaterally Cardio regular rate, regular rhythm and no murmurs GI normal to inspection, nondistended, normoactive bowel sounds and non-tender Palpation: soft Back/Spine no CVA tenderness and normal ROM Extremity Extremity Narrative: Patient reports tenderness at the fibular head. She also notes tenderness the plantar aspect of her foot. I do not see any significant swelling or ecchymosis. General Extremety ED: Negative for edema General Extremity: Negative for edema Neuro oriented x3 and CN's II-XII intact bilaterally Sensorium / Orientation: alert Motor Exam: strength 5/5 throughout Psych mental status grossly normal Mood & Affect: Negative for depressed or tearful Skin no rashes or lesions noted and no wounds MDM MDM MDM Narrative Medical decision making narrative: My interpretation of the plain films of the tib-fib is no acute fracture. My interpretation of the foot films is a calcification on the plantar surface. My concern is that this could be a pull off fracture given that this is where the patient's pain is at. I will place her in a boot crutches as needed follow-up with podiatry. Radiography Diagnostic Testing: Clinical Impression(s) from Imaging Studies Foot X-Ray 05/09/22 09:33 IMPRESSION: 1. A small 3.9 mm triangle shaped calcific/radiopaque density is seen in the plantar soft tissues in the mid foot region, only on the lateral view. This is presumed to represent soft tissue calcification, but correlate if there is concern for foreign body. 2. No subcutaneous gas is present. Electronically Signed: Selwyn Workman MD at 10:29 EDT Reading Location ID and State: [address] [place] [address] , Service support , Tibia/Fibula X-Ray 05/09/22 09:33 IMPRESSION: Normal x-ray examination of the tibia and fibula. Electronically Signed: Selwyn Workman MD at 10:30 EDT Reading Location ID and State: [address] [place] [address] , Service support , Discharge Plan Triage Chief Complaint: Lower Extremity Injury ED Provider: Osmani Thompson Dx/Rx/DC Orders Clinical Impression: Foot fracture, left Instructions: ED Fracture, Foot Prescriptions: No Action benzonatate [benzonatate] 100 MG capsule 200 mg PO TID PRN PRN (Reason: Cough) Qty: 20 0RF Primary Care Provider: Care Physician,No Primary Referrals: Houston Zhao DPM [STAFF PHYSICIAN] - As soon as possible Care Physician,No Primary [Primary Care Provider] - Disposition Disposition: Home, Self Care
[2022-05-09 11:14] VITALS: BP 134/78; PULSE 78; RESP 14; TEMP 36.3; O2SAT 98
== END 2022-05-09 11:15 | disposition home or self-care (01) ==
PROVIDERS: Emergency Provider Emergency Medicine; Visit Provider Emergency Medicine
DX: S92.902A Unspecified fracture of left foot, initial encounter for closed fracture (principal); X58.XXXA Exposure to other specified factors, initial encounter
CPT/HCPCS: 73590; 73630; 99284

== ENCOUNTER → 2022-05-28 | Outpatient (CLI) | payer MEDICAID, SELFPAY ==
[2022-05-28 10:23] LABS: Absolute Lymphocyte Count 1.67 X10^3/uL (0.83-4.51); Absolute Neutrophil Count 6.5 X10^3/uL (2.0-7.7); Basophil# 0.05 X10^3/uL; Basophil% 0.6 % (0-1); Eosinophil# 0.32 X10^3/uL; Eosinophils% 3.5 % (0-5); Hematocrit 38.1 % (37-47); Hemoglobin 12.3 g/dL (12.0-15.0); Lymphocyte # 1.67 X10^3/ul (0.83-4.51); Lymphocyte % 18.4 % (19-41); Mean Corp Hgb Conc 32.3 g/dL (32-36); Mean Corpuscular Hgb 25.9 pg (27.0-32.0); Mean Corpuscular Volume 80.2 fL (81-99); Mean Platelet Vol. 12.9 fl (6.2-12.0); Monocyte# 0.56 X10^3/uL; Monocyte% 6.2 % (0-10); NRBC Flagged by Analyzer 0 % (0-5); Neutrophil # 6.45 X10^3/uL (2.7-7.7); Platelet Count 241 K/mm3 (150-450); RBC Distribution Width CV 14.6 % (11.6-14.6); RBC Distribution Width SD 42.8 fl (35.1-43.9); Red Blood Count 4.75 M/mm3 (4.2-5.4); White Blood Count 9.1 K/mm3 (4.4-11.0)
[2022-05-28 10:46] LABS: Hemoglobin A1c 5.3 % (3.8-5.6)
[2022-05-28 10:47] LABS: Vitamin D,25 Hydroxy 39.2 ng/mL
[2022-05-28 11:10] LABS: ALB/GLOB Ratio 0.8 RATIO (0.9-2.4); AST(SGOT) 14 U/L (15-37); Alanine Aminotransfer ALT/SGPT 20 U/L (13-56); Albumin, Serum 3.4 g/dL (3.2-5.0); Alkaline Phosphatase 122 U/L (45-117); Anion Gap 5 (5-15); BUN 17 mg/dL (7-18); BUN/Creat Ratio 25.8 RATIO (10-20); Calcium,Total 9.4 mg/dL (8.5-10.1); Chloride 105 mmol/L (98-107); Cholesterol 157 mg/dL (200); Creatinine, Serum 0.66 mg/dL (0.55-1.02); EST Glomerular Filtration Rate 109 mL/min (>60); Est Glom Filt Rate - Afr Amer 132 mL/min (>60); Glucose 98 mg/dL (74-106); High Density Lipoprotein 41 mg/dL; Potassium 4.2 mmol/L (3.5-5.1); Protein, Total 7.4 g/dL (6.4-8.2); Sodium Level 137 mmol/L (136-145); Triglycerides 160 mg/dL; Very Low Density Lipoprotein 32 mg/dL (5-40)
== END | disposition home or self-care (01) ==
LOC: LAB 08:59
DX: F90.9 Attention-deficit hyperactivity disorder, unspecified type (principal); E66.9 Obesity, unspecified
CPT/HCPCS: 36415; 80053; 80061; 82306; 83036; 85025

== ENCOUNTER 2022-07-05 18:42 | Emergency (ER) | payer MEDICAID, SELFPAY ==
[2022-07-05 18:42] VITALS: BP 115/67; PULSE 76; RESP 16; TEMP 37.4; O2SAT 96; BMI 34.1
--- NOTE | 2022-07-05 18:57 | EX.ED.DYSGE1 ---
HPI History of Present Illness Chief Complaint: Cough Informant: patient Onset/Context/Timing Onset: Yesterday Current Severity: Mild Maximum Severity: Moderate Narrative Narrative: Patient presents via EMS after coughing fit with COVID. She felt ill yesterday and rundown with low-grade fever. Today she felt slightly worse. Home COVID test was positive. She was giving her daughter a bath this afternoon and she became very fatigued and sweaty. She started having a coughing fit and could not stop. Her fianc? accidentally took her keys with him this morning so she did not have a vehicle. She called EMS. [facility] Medical History Asthma Chest pain, atypical Premature ventricular contraction Home Medications albuterol sulfate 90 mcg/actuation aerosol inhaler (Ventolin HFA) 1 - 2 puff inhalation Q4H PRN PRN Wheezing ##1 07/05/22 [Rx Last Taken Unknown] benzonatate 200 mg capsule 200 mg PO TID PRN cough #14 caps 07/05/22 [Rx Last Taken Unknown] Allergy/AdvReac Type Severity Reaction Status Date / Time coconut Allergy Hives Verified 07/05/22 18:46 diphenhydramine HCl Allergy Hives Verified 07/05/22 18:46 [From Benadryl] sweet potato Allergy Swelling Verified 07/05/22 18:46 sertraline [From Zoloft] AdvReac Other Verified 07/05/22 18:46 Family History Mother CVA (cerebral vascular accident) Surgical History H/O adenoidectomy History of section Social History Smoking Status: Never smoker alcohol intake: never substance use type: does not use caffeine: Yes Type: carbonated beverages Number of servings: 1 ROS ROS ED Constitutional Constitutional ED: Reports fever(s); Denies chills Eyes Eyes: Denies change in vision or discharge from eye(s) ENT ENT ED: Denies discharge from eye(s), rhinorrhea or sore throat Cardiovascular Cardiovascular: Denies chest pain or palpitations Respiratory/Chest Respiratory/Chest: Reports cough; Denies dyspnea Gastrointestinal Gastrointestinal: Denies abdominal pain, diarrhea, nausea or vomiting Genitourinary Genitourinary ED: Denies difficulty urinating or dysuria Musculoskeletal Musculoskeletal: Reports myalgias; Denies back pain or extremity pain Integumentary Denies Abrasions or rash Neurologic Neurologic: Reports weakness; Denies headache(s) Psychiatric Psychiatric: Denies anxiety or depression Allergic/Immunologic Allergic/Immunologic ED: Denies lip swelling or urticaria EXAM Physical Exam Const Vital Signs: 07/05/22 18:42 07/05/22 19:18 07/05/22 19:18 Temperature 99.4 F H 99.2 F H Temperature Source Oral Temporal Pulse Rate 76 76 Respiratory Rate 16 18 Respiratory Effort Respiratory Depth Respiratory Pattern Blood Pressure 115/67 115/67 Blood Pressure Mean 83 83 Pulse Ox 96 98 98 Oxygen Delivery Method Room Air Room Air Room Air 07/05/22 19:20 07/05/22 20:12 Temperature Temperature Source Pulse Rate 71 Respiratory Rate 18 Respiratory Effort Normal Non-Labored Respiratory Depth Normal Respiratory Pattern Normal Blood Pressure 116/70 Blood Pressure Mean Pulse Ox 96 Oxygen Delivery Method Positive well nourished and well developed General Appearance ED: well developed HEENT Reports normocephalic and head/scalp atraumatic Eyes PERRL and EOMs intact bilaterally Neck supple Chest Wall inspection of chest normal and palpation of chest normal Resp normal respiratory effort and clear to auscultation bilaterally Cardio regular rate and regular rhythm GI normal to inspection, nondistended, normoactive bowel sounds Palpation: soft Extremity normal to inspection Neuro oriented x3 and no sensory deficits noted Sensorium / Orientation: alert Motor Exam: strength 5/5 throughout Psych mental status grossly normal Skin no rashes or lesions noted MDM MDM MDM Narrative Medical decision making narrative: Portable chest x-ray obtained. Patient given Tessalon Perles. Radiography Diagnostic Testing: Clinical Impression(s) from Imaging Studies Chest X-Ray 07/05/22 19:09 IMPRESSION: Normal x-ray examination of the chest. Electronically Signed: Houston Larson MD at 19:26 EDT , Treatment and Re-Evaluation Narrative: X-ray per my interpretation reveals no infiltrate. Radiology interpretation is reviewed and agrees. She will continue her Robitussin-CF at home and I will write her Vibha Mcqueen. Supportive care is discussed. Discharge Plan Triage Chief Complaint: Cough ED Provider: Yadira Thompson Dx/Rx/DC Orders Clinical Impression: COVID-19 Instructions: Coronavirus Disease 2019 (COVID-19): Overview, Coronavirus Disease 2019 (COVID-19): Caring for Yourself or Others Prescriptions: New benzonatate 200 mg capsule 200 mg PO TID PRN (Reason: cough) Qty: 14 0RF albuterol sulfate [Ventolin HFA] 90 mcg/actuation HFA aerosol inhaler 1 - 2 puff inhalation Q4H PRN PRN (Reason: Wheezing) Qty: 1 0RF Discontinued benzonatate [benzonatate] 100 MG capsule 200 mg PO TID PRN PRN (Reason: Cough) Qty: 20 0RF Primary Care Provider: [facility]yn [place] Referrals: [facility]yn [place] [Primary Care Provider] - 1-2 Weeks Disposition Disposition: Home, Self Care Discharge Date/Time: 07/05/22 20:13
--- NOTE | 2022-07-05 19:09 | RAD_ITS ---
STUDY: X-RAY CHEST REASON FOR EXAM: Female, 31 years old. cough TECHNIQUE: AP portable COMPARISON: 06/28/2020 FINDINGS: The lungs are clear and expanded. There is no demonstrated pleural abnormality. Normal size heart. Normal mediastinum and cory. Normal visualized pulmonary arteries. Normal visualized aortic arch and descending thoracic aorta. Normal visualized thoracic spine. Normal visualized ribs, clavicles, and shoulders. There is no demonstrated abnormality of the visualized soft tissue structures of the upper abdomen. No significant change since prior exam RAD/Chest 1 View (Portable) IMPRESSION: Normal x-ray examination of the chest. Electronically Signed: Houston Larson MD at 19:26 EDT ,
[2022-07-05] MEDS: Benzonatate 100 MG Capsule 200 MG PO (19:12)
[2022-07-05 19:18] VITALS: BP 115/67; PULSE 76; RESP 18; TEMP 37.3; O2SAT 98
[2022-07-05 20:12] VITALS: BP 116/70; PULSE 71; RESP 18; O2SAT 96
== END 2022-07-05 20:13 | disposition home or self-care (01) ==
PROVIDERS: Emergency Provider Emergency Medicine; Visit Provider Emergency Medicine
DX: U07.1 COVID-19 (principal)
CPT/HCPCS: 71045; 99284

== ENCOUNTER 2022-08-08 12:06 | Emergency (ER) | payer MEDICAID, SELFPAY ==
[2022-08-08 12:07] VITALS: BP 134/77; PULSE 64; RESP 16; TEMP 36.7; O2SAT 98; BMI 34.1
--- NOTE | 2022-08-08 12:13 | EDS_ITS ---
HPI History of Present Illness Chief Complaint: Laceration Informant: patient Onset/Context/Timing Onset: Today Narrative Narrative: 32-year-old female presenting with wound to left hand. She was trying to open a plastic container with a knife and slipped and the knife hit her left thumb. Minimal bleeding. Her tetanus is up-to-date. She is left-handed. Tetanus Immunization: <5 years PFSH PFSH Medical History Asthma Chest pain, atypical Premature ventricular contraction Home Medications albuterol sulfate 90 mcg/actuation aerosol inhaler (Ventolin HFA) 1 - 2 puff inhalation Q4H PRN PRN Wheezing ##1 07/05/22 [Rx Last Taken Unknown] benzonatate 200 mg capsule 200 mg PO TID PRN cough #14 caps 07/05/22 [Rx Last Taken Unknown] Allergy/AdvReac Type Severity Reaction Status Date / Time coconut Allergy Hives Verified 08/08/22 12:09 diphenhydramine HCl Allergy Hives Verified 08/08/22 12:09 [From Benadryl] sweet potato Allergy Swelling Verified 08/08/22 12:09 sertraline [From Zoloft] AdvReac Other Verified 08/08/22 12:09 Family History Mother CVA (cerebral vascular accident) Surgical History H/O adenoidectomy History of section Social History Smoking Status: Never smoker alcohol intake: never substance use type: does not use caffeine: Yes Type: carbonated beverages Number of servings: 1 ROS ROS ED Constitutional Constitutional ED: Denies fever(s) ENT ENT ED: Denies rhinorrhea Cardiovascular Cardiovascular: Denies chest pain Respiratory/Chest Respiratory/Chest: Denies dyspnea Musculoskeletal Musculoskeletal: Reports other Details: left thumb abrasion Integumentary Reports Abrasions Neurologic Neurologic: Denies headache(s) EXAM Physical Exam Const Vital Signs: 08/08/22 12:07 Temperature 98.0 F Temperature Source Temporal Pulse Rate 64 Respiratory Rate 16 Blood Pressure 134/77 H Blood Pressure Mean 96 Pulse Ox 98 Oxygen Delivery Method Room Air Positive well nourished and well developed General Appearance ED: well developed HEENT Reports normocephalic and head/scalp atraumatic Eyes PERRL and EOMs intact bilaterally Neck supple General: Negative for tenderness Chest Wall inspection of chest normal Resp normal respiratory effort and clear to auscultation bilaterally Cardio regular rate and regular rhythm Extremity normal to inspection Extremity Narrative: 0.5 cm superficial laceration to proximal left thumb. No active bleeding. Normal pulses. Normal cap refill. Tendon function is normal. Active full range of motion. Normal sensation. Neuro oriented x3, no focal motor deficits and no sensory deficits noted Sensorium / Orientation: alert Psych mental status grossly normal MDM MDM MDM Narrative Medical decision making narrative: Wound was irrigated. Closed with Dermabond. Tetanus is up-to-date. Advised wound care instructions. Discharge Plan Triage Chief Complaint: Laceration ED Provider: Amber Morris Dx/Rx/DC Orders Clinical Impression: Superficial laceration of left hand Instructions: ED Laceration, Extremity: Skin Glue Prescriptions: No Action benzonatate 200 mg capsule 200 mg PO TID PRN (Reason: cough) Qty: 14 0RF albuterol sulfate [Ventolin HFA] 90 mcg/actuation HFA aerosol inhaler 1 - 2 puff inhalation Q4H PRN PRN (Reason: Wheezing) Qty: 1 0RF Primary Care Provider: [facility] Carolyn [place] Referrals: [facility] Carolyn [place] [Primary Care Provider] - Disposition Disposition: Home, Self Care
== END 2022-08-08 12:41 | disposition home or self-care (01) ==
LOC: ED 12:33
PROVIDERS: Emergency Provider Emergency Medicine; Visit Provider Emergency Medicine
DX: S61.412A Laceration without foreign body of left hand, initial encounter (principal); W26.0XXA Contact with knife, initial encounter
CPT/HCPCS: 12001; 99282

== ENCOUNTER 2022-11-23 13:58 | Emergency (ER) | payer MEDICAID, SELFPAY ==
[2022-11-23 13:59] VITALS: BP 118/84; PULSE 61; RESP 14; TEMP 36.2; O2SAT 98; BMI 36.8
--- NOTE | 2022-11-23 14:27 | EDS_ITS ---
HPI History of Present Illness Chief Complaint: Headache Detail of Chief Complaint: So headache predominately right side and dizziness Informant: patient Onset/Context/Timing Onset: Today (Onset 11 AM with regards to the headache and dizziness shortly thereafter) Context: Gradual Timing: Continuous Quality -Headache: Positive for Sharp (Drooling like sensation bitemporal) Location: Left temporal area to the right occipital area Current Severity: Moderate Maximum Severity: Severe Worsened by: Light and motion precipitates of the in dizziness. Relieved by: Nothing with regards to the headache dizziness being stationary Associated Symptoms/Injury Associated Symptoms: Positive for Nausea and Photophobia; Negative for Fever, Vomiting, Sore Throat, Sinus Pressure, Numbness, Tingling, Preceding Aura, V isual Changes, Blurred Vision or Visual Loss Injury - LYLE: Negative for Direct Trauma Narrative Narrative: Patient is a 32-year-old female who went to the urgent care. She was sent to the emergency department. Patient states headache started at approximate 11 AM. Is initially describes a sharp drilling sensation. Now she describes pain. She denies history of headaches or migraine. She denies double vision, blurred vision loss of vision. She states she had trouble remembering things briefly while at the urgent care. She denies trouble with speech or swallowing. Denies problems with balance or coordination. She does endorse nausea without vomiting or diarrhea. The dizziness is described as a spinning sensation and is precipitated with movement. She denies paresthesia, anesthesia or motor weakness of the upper or lower extremities. Prior similar symptoms: No Recent Illness/Hospitalization: No [facility] Medical History Asthma Chest pain, atypical Premature ventricular contraction Home Medications albuterol sulfate 90 mcg/actuation aerosol inhaler (Ventolin HFA) 1 - 2 puff inhalation Q4H PRN PRN Wheezing ##1 07/05/22 [Rx Last Taken Unknown] benzonatate 200 mg capsule 200 mg PO TID PRN cough #14 caps 07/05/22 [Rx Last Taken Unknown] Allergy/AdvReac Type Severity Reaction Status Date / Time coconut Allergy Hives Verified 11/23/22 13:59 diphenhydramine HCl Allergy Hives Verified 11/23/22 13:59 [From Benadryl] sweet potato Allergy Swelling Verified 11/23/22 13:59 sertraline [From Zoloft] AdvReac Other Verified 11/23/22 13:59 Family History Mother CVA (cerebral vascular accident) Surgical History H/O adenoidectomy History of section Social History Smoking Status: Never smoker alcohol intake: never substance use type: does not use caffeine: Yes Type: carbonated beverages Number of servings: 1 ROS ROS ED Constitutional Constitutional ED: Denies chills, fever(s), subjective, sweats or weight loss Eyes Eyes: Reports other Details: Positive photophobia. ; Denies blurry vision, change in vision or diplopia ENT ENT ED: Denies ear pain, rhinorrhea or sore throat Cardiovascular Cardiovascular: Denies chest pain, orthopnea, palpitations, paroxysmal nocturnal dyspnea or racing heartbeat Respiratory/Chest Respiratory/Chest: Denies cough, dyspnea, dyspnea on exertion, orthopnea or paroxysmal nocturnal dyspnea Gastrointestinal Gastrointestinal: Reports nausea; Denies abdominal pain, diarrhea, melena or vomiting Genitourinary Genitourinary ED: Reports LMP (females 10-50) Details: Comment: (States she had spotting 2 weeks ago which is abnormal for her. She does have an IUD in place.); Denies dysuria, hematuria or urinary frequency Musculoskeletal Musculoskeletal: Denies arthralgias, back pain, myalgias or neck pain Integumentary Denies abscess, Abrasions or rash Neurologic Neurologic: Reports headache(s) and other Details: And further detail documented in the narrative HPI ; Denies paresthesias or weakness Psychiatric Psychiatric: Denies anxiety or depression Endocrine Endocrinology: Denies polydipsia, polyphagia or polyuria Hematologic/Lymphatic Hematologic/Lymphatic: Denies easy bleeding or easy bruising EXAM Physical Exam Const Vital Signs: 11/23/22 13:59 Temperature 97.2 F L Temperature Source Temporal Pulse Rate 61 Respiratory Rate 14 Blood Pressure 118/84 H Blood Pressure Mean 95 Pulse Ox 98 Oxygen Delivery Method Room Air Positive well nourished, well developed and obese Constitutional Narrative: Patient is lying in the examination room on the cot with lights off. Patient complained of worsening headache when the lights were turned on. General Appearance ED: well developed and NAD; Negative for pallor Nutritional Appearance: obese HEENT Reports normocephalic and moist mucous membranes HEENT Narrative: Unable to visualize the right TM due to cerumen impaction of the external auditory canal. 50 to 75% of the left TM was seen and appears normal. Nares patent. No tenderness over the frontal, ethmoid or maxillary sinuses. There is no abnormality to teeth. Posterior pharynx without erythema or exudate. There is no deviation of tongue with protrusion. atraumatic Eyes PERRL and EOMs intact bilaterally Eyes Narrative: There is no nystagmus. Able to perform funduscopic exam in spite of her complaint of photophobia. Cup-to-disc ratio is normal. Venous pulsations noted bilaterally. There is no evidence of papilledema. General Eye ED: Negative for pale conjunctiva or scleral icterus Neck no lymphadenopathy, supple, no meningeal signs and no JVD Resp normal respiratory effort and clear to auscultation bilaterally Cardio regular rate, regular rhythm, S1 normal heart sound, S2 normal heart sound and no murmurs GI non-tender and non-distended Auscultation: normoactive bowel sounds Palpation: soft Back/Spine no CVA tenderness Extremity normal to inspection, full ROM and normal capillary refill Extremity Narrative: Reflexes are 2+ at the biceps, brachialis, triceps, patella and ankle. There is no clonus or Babinski sign noted. The eye skew test was negative. The HIT test was negative. [place]-Hallpike test was positive unable to determine if she had nystagmus because she screamed out that she was dizzy closed her eyes and put her hands over her face. General Extremety ED: Negative for edema General Extremity: Negative for edema Neuro oriented x3, CN's II-XII intact bilaterally and no sensory deficits noted [place] Coma Scale: document GCS findings Spontaneous Obeys Commands Oriented 15 Sensorium / Orientation: awake Coordination / Balance: [id number] test normal, [id number] test normal and Romberg test negative Speech: speech normal Gait (Neuro): normal gait Motor Exam: strength 5/5 throughout Psych Psych Narrative: Exaggerated response to light Mood & Affect: anxious Skin General Skin Exam: elasticity normal and turgor normal; Negative for jaundice or pallor Lesions: no lesions Rashes: no rashes MDM MDM MDM Narrative Medical decision making narrative: Patient with unilateral headache and benign neurologic exam. Suspect the dizziness is due to paroxysmal positional vertigo. Will have patient's right ear treated with Debrox and irrigated to determine if this is the cause of her peripheral vertigo. With regards to the headache since patient is not febrile vital signs are normal no meningismal signs doubt meningitis and reason patient was not scanned and LP was not performed. Clinically she does not have history or findings to raise concern for sinusitis. Will treat with IV Cogentin prior to Reglan to prevent dystonic reaction and Toradol for her headache. Patient lists Benadryl as allergy, hives. Doubt idiopathic intracranial hypertension since there is no papilledema and she has no change in vision. Patient was reassessed at 1748. Patient's vertigo has resolved. The cerumen impaction has been treated and patient reports she is now able to hear out of that ear as well. Her headache resolved with IV Reglan and Toradol. In light of resolution of her symptoms she was discharged to home. test was obtained because she states she had bleeding 2 weeks ago which was abnormal. This was negative. Review of outside sources indicates patient was treated for conjunctivitis, placement of IUD. She has numerous ER visits as well. None of the visits were for headache. Lab Data Attestation: I reviewed the patient's lab results. Labs: Laboratory Results - last 24 hr 11/23/22 14:38 Serum , Qual NEGATIVE Discharge Plan Triage Chief Complaint: Headache ED Provider: Freddy Mcintosh Dx/Rx/DC Orders Clinical Impression: Unilateral headache, Obesity (BMI 30-39.9), Abnormal vaginal bleeding Prescriptions: No Action benzonatate 200 mg capsule 200 mg PO TID PRN (Reason: cough) Qty: 14 0RF albuterol sulfate [Ventolin HFA] 90 mcg/actuation HFA aerosol inhaler 1 - 2 puff inhalation Q4H PRN PRN (Reason: Wheezing) Qty: 1 0RF Stand Alone Forms: ED Work / School Excuse Primary Care Provider: Care Physician,No Primary [facility] - As Needed Disposition Disposition: Home, Self Care
[2022-11-23] MEDS: Ketorolac 15 MG/ML Vial IV (14:36)
[2022-11-23] MEDS: Metoclopramide 10 MG/2 ML Vial IV (14:37)
[2022-11-23] MEDS: Carbamide Peroxide 15 ML Bottle 5 DRP OTIC (14:47)
[2022-11-23 14:56] LABS: Internal QC Validated? YES +Cl - CLEAR BKGD; Pregnancy, Serum, hCG Quali. NEGATIVE Negative
== END 2022-11-23 18:08 | disposition home or self-care (01) ==
PROVIDERS: Emergency Provider Emergency Medicine; Visit Provider Emergency Medicine
DX: R51.9 Headache, unspecified (principal); E66.9 Obesity, unspecified; N93.9 Abnormal uterine and vaginal bleeding, unspecified
CPT/HCPCS: 84703; 96374; 96375; 99284; A4216

== ENCOUNTER 2023-01-01 05:33 | Emergency (ER) | payer MEDICAID, SELFPAY ==
[2023-01-01 05:38] VITALS: BP 128/88; PULSE 91; RESP 16; TEMP 35.6; O2SAT 97; BMI 37.0
[2023-01-01 05:40] VITALS: BP 128/88; PULSE 91; RESP 16; TEMP 35.6; O2SAT 97
--- NOTE | 2023-01-01 05:47 | EX.ED.VIS.UR ---
HPI HPI - URI History of Present Illness Chief Complaint: Sore Throat Narrative Narrative: 32-year-old female presents with her children because she thinks she has strep throat. She was treated for strep pharyngitis 3 weeks ago with amoxicillin. Her niece who was staying with her was diagnosed with strep pharyngitis at urgent care last night. In the middle the night her 2 children woke up and started vomiting which is how the strep and her knee started. She felt that her throat was scratchy and beginning to get sore. No fevers or chills, no other symptoms. She presents because she think she has strep throat again. ROS ROS ED ROS Narrative Constitutional: No fever, no chills. HEENT: Positive sore throat. No neck pain. No loss of vision. No rhinorrhea. Cardiovascular: No chest pain. No palpitations. No pedal edema. Respiratory: No cough, no shortness of breath. Abdominal: No abdominal pain. No nausea. No vomiting. Genitourinary: No dysuria. No hematuria. Musculoskeletal: No myalgias. No arthralgias. Neurologic: No headaches. No dizziness. No lightheadedness. Skin: No rash. No change in color. Psychiatric: No depression. No anxiety. [facility] Medical History Asthma Chest pain, atypical Premature ventricular contraction Home Medications albuterol sulfate 90 mcg/actuation aerosol inhaler (Ventolin HFA) 1 - 2 puff inhalation Q4H PRN PRN Wheezing ##1 07/05/22 [Rx Last Taken Unknown] benzonatate 200 mg capsule 200 mg PO TID PRN cough #14 caps 07/05/22 [Rx Last Taken Unknown] Allergy/AdvReac Type Severity Reaction Status Date / Time coconut Allergy Hives Verified 11/23/22 13:59 diphenhydramine HCl Allergy Hives Verified 11/23/22 13:59 [From Benadryl] sweet potato Allergy Swelling Verified 11/23/22 13:59 sertraline [From Zoloft] AdvReac Other Verified 11/23/22 13:59 Family History Mother CVA (cerebral vascular accident) Surgical History H/O adenoidectomy History of section Social History Smoking Status: Never smoker alcohol intake: never substance use type: does not use caffeine: Yes Type: carbonated beverages Number of servings: 1 EXAM Physical Exam Narrative Exam Narrative: Afebrile. Vital signs noted. HEENT: Normocephalic. Atraumatic. PERRL, EOMI. Neck soft and supple. No point tenderness or step off. Mild pharyngeal erythema. Airway patent. No drooling or trismus. No meningismus. No cervical lymphadenopathy. Cardiovascular: Regular rate and rhythm. No murmurs, rubs, or gallops appreciated. Respiratory: No tachypnea. Lungs clear to auscultation bilaterally. Gastrointestinal: Abdomen soft, nontender, with normoactive bowel sounds. No rebound or guarding. Neurological: Awake. Alert. Nonfocal, nonlateralizing. Skin: No rash. Normal color. No pallor. Musculoskeletal: No pedal edema. Full range of motion extremities. Const Vital Signs: 01/01/23 05:38 01/01/23 05:40 Temperature 96.1 F L 96.1 F L Temperature Source Temporal Temporal Pulse Rate 91 91 Respiratory Rate 16 16 Blood Pressure 128/88 H 128/88 H Blood Pressure Mean 101 101 Pulse Ox 97 97 Oxygen Delivery Method Room Air Room Air MDM MDM MDM Narrative Medical decision making narrative: Patient was swabbed for rapid strep test. In the differential diagnosis is strep pharyngitis versus viral pharyngitis. Her rapid strep is negative. At this point in time, I feel she be discharged safely home with symptomatic treatment. According to laboratory, cultures pending. She will follow-up with a primary care physician. Disposition is discharged home in stable condition. Discharge Plan Triage Chief Complaint: Sore Throat ED Provider: Chetan Al Dx/Rx/DC Orders Clinical Impression: Sore throat Instructions: ED Pharyngitis, Viral Prescriptions: No Action benzonatate 200 mg capsule 200 mg PO TID PRN (Reason: cough) Qty: 14 0RF albuterol sulfate [Ventolin HFA] 90 mcg/actuation HFA aerosol inhaler 1 - 2 puff inhalation Q4H PRN PRN (Reason: Wheezing) Qty: 1 0RF Primary Care Provider: Care Physician,No Primary Referrals: Adore Wilkinson MD [Med Staff - [employer]] - As soon as possible Care Physician,No Primary [Primary Care Provider] - Disposition Disposition: Home, Self Care
== END 2023-01-01 06:42 | disposition home or self-care (01) ==
PROVIDERS: Emergency Provider Emergency Medicine; Visit Provider Emergency Medicine
DX: J02.9 Acute pharyngitis, unspecified (principal)
CPT/HCPCS: 87880; 99282

== ENCOUNTER 2023-08-11 20:03 | Emergency (ER) | payer MEDICAID, SELFPAY ==
[2023-08-11 20:04] VITALS: BP 125/84; PULSE 88; RESP 20; TEMP 36.8; O2SAT 99; BMI 38.2
--- NOTE | 2023-08-11 20:08 | ED.VIS.DYS ---
HPI History of Present Illness Chief Complaint: Shortness of Breath PFSH PFSH Medical History Asthma Chest pain, atypical Premature ventricular contraction Home Medications albuterol sulfate 90 mcg/actuation aerosol inhaler (Ventolin HFA) 1 - 2 puff inhalation Q4H PRN PRN Wheezing ##1 07/05/22 [Rx Last Taken Unknown] benzonatate 200 mg capsule 200 mg PO TID PRN cough #14 caps 07/05/22 [Rx Last Taken Unknown] Allergy/AdvReac Type Severity Reaction Status Date / Time coconut Allergy Hives Verified 08/11/23 20:06 diphenhydramine HCl Allergy Hives Verified 08/11/23 20:06 [From Benadryl] sweet potato Allergy Swelling Verified 08/11/23 20:06 sertraline [From Zoloft] AdvReac Other Verified 08/11/23 20:06 Family History Mother CVA (cerebral vascular accident) Surgical History H/O adenoidectomy History of section Social History Smoking Status: Never smoker alcohol intake: never substance use type: does not use caffeine: Yes Type: carbonated beverages Number of servings: 1 EXAM Physical Exam Const Vital Signs: 08/11/23 20:04 08/11/23 21:10 Temperature 98.3 F Temperature Source Temporal Pulse Rate 88 Respiratory Rate 20 H Respiratory Effort Normal Non-Labored Blood Pressure 125/84 H Blood Pressure Mean 97 Pulse Ox 99 Oxygen Delivery Method Room Air MDM MDM MDM Narrative Medical decision making narrative: HISTORY OF PRESENT ILLNESS: 33-year-old female here with shortness of breath. No she is been feeling more fatigued having muscle aches in the setting of having a sick contact and her daughter. She states today she started having shortness of breath. Denies any chest pain. Denies any bleeding diathesis. Denies any lower extremity edema, orthopnea or paroxysmal nocturnal dyspnea. The patient denies recent surgery in the last 4 weeks or immobilization in the last 3 days, denies previous diagnosis of DVT or PE, hemoptysis, unilateral leg swelling or malignancy with treatment the last 6 months or palliative. No estrogen use noted. REVIEW OF SYSTEMS: Pertinent positives: Shortness of breath Pertinent negatives: Chest pain, syncope, focal weakness PHYSICAL EXAM: Nursing triage notes reviewed, Vital signs reviewed Constitutional: please see [facility] HENT: MMM Eyes: Pupils equal round and reactive to light, Extraocular muscles intact Neck: No stridor, no JVD, full neck ROM Lungs: Clear to auscultation, No wheezing or rales. No increased work of breathing, no conversational dyspnea, no accessory muscle use, no nasal flaring. No respiratory distress noted Heart: Regular rate and rhythm, No murmurs, No rubs and No gallops, 2+ distal pulses (radial, femoral, posterior tibial) in all extremities Abdomen: Soft, there is no tenderness, rigidity, rebound or guarding, no obvious peritoneal signs, no palpable pulsatile abdominal masses, no auscultated abdominal bruit : No CVAT Extremities: No edema Neuro: No focal neurological deficits, cranial nerves II through XII intact, 5/5 strength in all extremities. Intact sensation to light touch in all extremities, 2+ reflexes bilateral patella tendons. Normal gait. No ataxia. Skin: No rash or lesions noted MEDICAL DECISION MAKING: Chief Complaint: Shortness of breath External records reviewed: Stress test in 2019 showed no cardiac dysrhythmias during exercise or recovery Factors affecting care: COVID-19, PVCs Social determinants of health: none History obtained from others: The patient's Consults: none [facility] Narrative: Patient was hemodynamically stable, afebrile, nontoxic-appearing. Exam without focal cardiopulmonary abnormalities. I considered the following differential diagnosis: Pneumonia, COVID, flu, anemia, ACS, arrhythmia ALL IMAGES (IF OBTAINED) HAVE BEEN PERSONALLY REVIEWED AND INTERPRETED BY MYSELF. EKG with normal sinus tachycardia, frequent PVCs, normal axis, normal intervals, no STEMI noted to prior EKG from 2020 however more frequent PVCs Prior to completion of labs, images and further evaluation patient eloped from the emergency department. Total critical care time today provided was at least 0 minutes. This excludes separately billable procedures. Critical care time (if documented) is secondary to the patient having high probability of clinically significant/life threatening deterioration in the patient's condition which required my urgent intervention. Impression: 1. Dyspnea Dispo: Eloped . Discharge Plan Triage Chief Complaint: Shortness of Breath ED Provider: Terrence Escoto Dx/Rx/DC Orders Prescriptions: No Action benzonatate 200 mg capsule 200 mg PO TID PRN (Reason: cough) Qty: 14 0RF albuterol sulfate [Ventolin HFA] 90 mcg/actuation HFA aerosol inhaler 1 - 2 puff inhalation Q4H PRN PRN (Reason: Wheezing) Qty: 1 0RF Primary Care Provider: Care Physician,No Primary Referrals: Care Physician,No Primary [Primary Care Provider] - Disposition Disposition: Elopement Discharge Date/Time: 08/11/23 21:10
--- NOTE | 2023-08-11 20:32 | EKG12_ITS ---
Test Reason : GEN ILL Blood Pressure : / mmHG Vent. Rate : 113 BPM Atrial Rate : 087 BPM P-R Int : 192 ms QRS Dur : 088 ms QT Int : 356 ms P-R-T Axes : 041 039 016 degrees QTc Int : 488 ms Sinus rhythm with frequent Premature ventricular complexes Otherwise normal ECG Confirmed by RIP ESPARZA, CONNOR ([id number]), editor & co founder KALA WADE ([id number]) on 08/16/2023 7:57:13 AM Referred By: Confirmed By:CONNOR ERWIN MD
--- NOTE | 2023-08-11 21:07 | ED.RN ---
2100: Patient requests to leave AMA. Dr. Ecsoto notified, when returning to room to speak with patient she was not present and was seen leaving by the triage nurse.
== END 2023-08-11 21:10 | disposition left against medical advice (07) ==
LOC: ED 21:00
PROVIDERS: Emergency Provider Emergency Medicine; Visit Provider Emergency Medicine
DX: R06.00 Dyspnea, unspecified (principal)
CPT/HCPCS: 93005; 99282

== ENCOUNTER 2023-08-25 02:36 | Emergency (ER) | payer MEDICAID, SELFPAY ==
[2023-08-25 02:36] VITALS: BP 137/81; PULSE 72; RESP 20; TEMP 36.7; O2SAT 98; BMI 40.6
[2023-08-25] MEDS: guaiFENesin/Codeine 5 ML UDC 10 ML PO (03:21)
--- NOTE | 2023-08-25 03:30 | RAD_ITS ---
EXAM: XR CHEST, 2 VIEWS CLINICAL INDICATION: cough TECHNIQUE: Frontal and lateral views of the chest. COMPARISON: Previous chest radiographs of 07/05/2022 and 06/28/2020 FINDINGS: LUNGS AND PLEURAL SPACES: Unremarkable. No consolidation or edema. No pneumothorax. No effusion. HEART: Unremarkable. Cardiac silhouette not enlarged. Normal pulmonary vasculature. MEDIASTINUM: Central airways and mediastinal contour are unremarkable. BONES/JOINTS: Unremarkable. No acute osseous abnormality. SOFT TISSUES: Unremarkable. RAD/Chest PA and Lateral IMPRESSION: No significant interval change. No radiographic evidence of acute cardiopulmonary disease. Electronically Signed: Leander To MD at 4:03 EDT ,
--- NOTE | 2023-08-25 04:27 | EX.ED.DYSGE1 ---
HPI History of Present Illness Chief Complaint: Cold Sx Informant: patient Onset/Context/Timing Onset: Days Context: Gradual Onset Narrative Narrative: Patient presents with URI symptoms the past couple days. She complains of cough and sore throat. She does have a history of asthma. She does report some posttussive emesis. She states she took a home COVID test that was negative. Her stepdaughter was recently diagnosed with strep. [facility] Medical History Asthma Chest pain, atypical Premature ventricular contraction Home Medications albuterol sulfate 90 mcg/actuation aerosol inhaler (Ventolin HFA) 1 - 2 puff inhalation Q4H PRN PRN Wheezing ##1 07/05/22 [Rx Last Taken Unknown] benzonatate 200 mg capsule 200 mg PO TID PRN cough #14 caps 07/05/22 [Rx Last Taken Unknown] benzonatate 100 mg capsule 200 mg (2 x 100 mg) PO TID PRN cough #20 caps 08/25/23 [Rx Last Taken Unknown] hydrocodone-homatropine 5 mg-1.5 mg/5 mL (5 mL) oral syrup (Hycodan) 5 ml PO Q6H PRN cough 3 days #60 mL 08/25/23 [Rx Last Taken Unknown] prednisone 20 mg tablet 40 mg (2 x 20 mg) PO DAILY #8 tabs 08/25/23 [Rx Last Taken Unknown] Allergy/AdvReac Type Severity Reaction Status Date / Time coconut Allergy Hives Verified 08/11/23 20:06 diphenhydramine HCl Allergy Hives Verified 08/11/23 20:06 [From Benadryl] sweet potato Allergy Swelling Verified 08/11/23 20:06 sertraline [From Zoloft] AdvReac Other Verified 08/11/23 20:06 Family History Mother CVA (cerebral vascular accident) Surgical History H/O adenoidectomy History of section Social History Smoking Status: Never smoker alcohol intake: never substance use type: does not use caffeine: Yes Type: carbonated beverages Number of servings: 1 ROS ROS ED Constitutional Constitutional ED: Denies chills or fever(s) Eyes Eyes: Denies change in vision or discharge from eye(s) ENT ENT ED: Reports sore throat and other Details: Congestion ; Denies discharge from eye(s) or rhinorrhea Cardiovascular Cardiovascular: Denies chest pain or palpitations Respiratory/Chest Respiratory/Chest: Reports cough, dyspnea and sputum Gastrointestinal Gastrointestinal: Denies abdominal pain, nausea or vomiting Genitourinary Genitourinary ED: Denies dysuria Musculoskeletal Musculoskeletal: Denies back pain or extremity pain Integumentary Denies Abrasions or rash Neurologic Neurologic: Reports headache(s); Denies weakness Psychiatric Psychiatric: Denies anxiety or depression Allergic/Immunologic Allergic/Immunologic ED: Denies lip swelling or urticaria EXAM Physical Exam Const Vital Signs: 08/25/23 02:36 Temperature 98.1 F Temperature Source Temporal Pulse Rate 72 Respiratory Rate 20 H Blood Pressure 137/81 H Blood Pressure Mean 99 Pulse Ox 98 Oxygen Delivery Method Room Air Positive well nourished and well developed General Appearance ED: well developed HEENT Reports normocephalic and head/scalp atraumatic HEENT Narrative: TMs are clear bilaterally. Posterior pharynx examination unremarkable. Uvula midline. Eyes PERRL and EOMs intact bilaterally Neck supple Chest Wall inspection of chest normal and palpation of chest normal Resp normal respiratory effort and clear to auscultation bilaterally Cardio regular rate and regular rhythm GI non-tender Palpation: soft Extremity normal to inspection Neuro oriented x3 and no sensory deficits noted Sensorium / Orientation: alert Motor Exam: strength 5/5 throughout Psych mental status grossly normal Skin no rashes or lesions noted MDM MDM MDM Narrative Medical decision making narrative: Patient given Robitussin-AC to help control cough. Two-view chest x-ray obtained to evaluate for potential infiltrate. Rapid strep obtained. Radiography Chest X-Ray - ED: 2 View, Read by ED Physician, Normal, Heart, Lungs and Mediastinum Diagnostic Testing: Clinical Impression(s) from Imaging Studies Chest X-Ray 08/25/23 03:30 IMPRESSION: No significant interval change. No radiographic evidence of acute cardiopulmonary disease. Electronically Signed: Leander To MD at 4:03 EDT , Treatment and Re-Evaluation :: 2 view chest x-ray per my interpretation reveals no evidence of focal infiltrate. Radiology interpretation is reviewed and agrees. Rapid strep test is negative. Patient continues to have cough. She will be given Tessalon Perles. I will also give her prednisone and an albuterol MDI. Prescriptions will be sent. Test results are discussed with her and she agrees this is likely a viral illness and will pass. She is referred to local PCP to establish primary care. Return instructions given. Discharge Plan Triage Chief Complaint: Cold Sx ED Provider: Yadira Thompson Dx/Rx/DC Orders Clinical Impression: Viral URI with cough Instructions: ED URI, Viral W/ Wheezing (Adult) Prescriptions: New benzonatate 100 mg capsule 200 mg PO TID PRN (Reason: cough) Qty: 20 0RF prednisone 20 mg tablet 40 mg PO DAILY Qty: 8 0RF hydrocodone-homatropine [Hycodan] 5-1.5 mg/5 mL (5 mL) syrup 5 ml PO Q6H PRN (Reason: cough) 3 Days Qty: 60 0RF No Action benzonatate 200 mg capsule 200 mg PO TID PRN (Reason: cough) Qty: 14 0RF albuterol sulfate [Ventolin HFA] 90 mcg/actuation HFA aerosol inhaler 1 - 2 puff inhalation Q4H PRN PRN (Reason: Wheezing) Qty: 1 0RF Primary Care Provider: Care Physician,No Primary Referrals: Breana Fung DO [Med Staff - Active Staff] - As Needed Care Physician,No Primary [Primary Care Provider] - Disposition Disposition: Home, Self Care
[2023-08-25] MEDS: Albuterol Sulfate 8 gm Inhaler (60 puffs) 4 PUFF INHALATION (04:40)
[2023-08-25] MEDS: Benzonatate 100 MG Capsule 200 MG PO (04:41)
[2023-08-25] MEDS: predniSONE 20 MG Tablet 60 MG PO (04:41)
== END 2023-08-25 04:46 | disposition home or self-care (01) ==
PROVIDERS: Emergency Provider Emergency Medicine; Visit Provider Emergency Medicine
DX: J06.9 Acute upper respiratory infection, unspecified (principal)
CPT/HCPCS: 71046; 87880; 99283

== ENCOUNTER 2023-10-11 21:53 | Emergency (ER) | payer MEDICAID, SELFPAY ==
[2023-10-11 21:53] VITALS: BP 138/62; PULSE 76; RESP 15; TEMP 37.1; O2SAT 97
[2023-10-11 22:04] VITALS: BMI 39.8
--- NOTE | 2023-10-11 22:21 | EX.ED.VIS.UR ---
HPI HPI - URI History of Present Illness Chief Complaint: Shortness of Breath Informant: patient Onset/Context/Timing Onset: Today Context: - (Awoke with symptoms this morning) Timing: Continuous Narrative Narrative: Patient presents around 2200 after having been sick all day today, which is when it started. Cough, congestion, she states she is having some shortness of breath when she lies down but sounds like it is due to bronchospasm and coughing fits. She denies dyspnea with exertion. She is feeling poorly, having myalgias, headaches, no fevers that she knows of. She works at a [employer], so she did a rapid COVID at home today it was negative. Her significant other has had similar symptoms for the past 2 days, had a negative COVID test at a different hospital yesterday. ROS ROS ED Constitutional Constitutional ED: Reports body ache(s), headache(s) and malaise; Denies chills or fever(s) ENT ENT ED: Reports rhinorrhea and sore throat Cardiovascular Cardiovascular: Denies chest pain or palpitations Respiratory/Chest Respiratory/Chest: Reports cough and sputum; Denies dyspnea on exertion Gastrointestinal Gastrointestinal: Denies abdominal pain, diarrhea, nausea or vomiting Genitourinary Genitourinary ED: Denies dysuria or hematuria Musculoskeletal Musculoskeletal: Reports myalgias; Denies neck pain Integumentary Denies abscess or rash Neurologic Neurologic: Reports headache(s); Denies paresthesias or weakness Psychiatric Psychiatric: Denies depression or suicidal thoughts Endocrine Endocrinology: Denies polydipsia or polyuria [facility] Medical History Asthma Chest pain, atypical Premature ventricular contraction Home Medications albuterol sulfate 90 mcg/actuation aerosol inhaler (Ventolin HFA) 1 - 2 puff inhalation Q4H PRN PRN Wheezing ##1 07/05/22 [Rx Last Taken Unknown] benzonatate 200 mg capsule 200 mg PO TID PRN cough #20 caps 10/11/23 [Rx Last Taken Unknown] Allergy/AdvReac Type Severity Reaction Status Date / Time coconut Allergy Hives Verified 10/11/23 21:57 diphenhydramine HCl Allergy Hives Verified 10/11/23 21:57 [From Benadryl] sweet potato Allergy Swelling Verified 10/11/23 21:57 sertraline [From Zoloft] AdvReac Other Verified 10/11/23 21:57 Family History Mother CVA (cerebral vascular accident) Surgical History H/O adenoidectomy History of section Social History Smoking Status: Never smoker alcohol intake: never substance use type: does not use caffeine: Yes Type: carbonated beverages Number of servings: 1 EXAM Physical Exam Const Vital Signs: 10/11/23 21:53 10/11/23 22:04 Temperature 98.7 F Temperature Source Temporal Pulse Rate 76 Respiratory Rate 15 Respiratory Effort Normal Non-Labored Respiratory Depth Normal Respiratory Pattern Normal Blood Pressure 138/62 H Blood Pressure Mean 87 Pulse Ox 97 Oxygen Delivery Method Room Air Positive well nourished, well developed and obese General Appearance ED: well developed and NAD Nutritional Appearance: obese HEENT Reports moist mucous membranes normocephalic and atraumatic Throat: Negative for posterior oropharynx abnormal Eyes PERRL and EOMs intact bilaterally Neck no lymphadenopathy, supple and no meningeal signs Resp normal respiratory effort and clear to auscultation bilaterally Cardio no murmurs Rate: regular rate; Negative for tachycardic Rhythm: regular rhythm Back/Spine normal ROM Extremity normal to inspection and full ROM Neuro oriented x3, CN's II-XII intact bilaterally and no sensory deficits noted Sensorium / Orientation: alert Motor Exam: strength 5/5 throughout Skin Lesions: no lesions Rashes: no rashes MDM MDM MDM Narrative Medical decision making narrative: Patient's vital signs are normal she is not hypoxic, and her lungs are clear. I advised her that this is more likely something viral and not likely to be pneumonia, but given her complaint of dyspnea offered chest x-ray which she declined. I had discussed with her that our COVID swab is also an influenza swab, I ordered that as well as an RSV, after discussing with nursing the patient decided to refuse all of this and just wants something for the cough. Will prescribe her Tessalon Perles, however she is given instructions about how this is not likely to cure the cough for keep her from coughing at all. Likely viral etiology supportive care advised Radiography Diagnostic Testin view chest x-ray considered and discussed with patient but declined. See above. Discharge Plan Triage Chief Complaint: Shortness of Breath ED Provider: Pierce Lewis Dx/Rx/DC Orders Clinical Impression: Viral URI with cough Instructions: ED URI, Viral, No Abx (Adult) Prescriptions: Continued albuterol sulfate [Ventolin HFA] 90 mcg/actuation HFA aerosol inhaler 1 - 2 puff inhalation Q4H PRN PRN (Reason: Wheezing) Qty: 1 0RF benzonatate 200 mg capsule 200 mg PO TID PRN (Reason: cough) Qty: 20 0RF Discontinued benzonatate 100 mg capsule 200 mg PO TID PRN (Reason: cough) Qty: 20 0RF prednisone 20 mg tablet 40 mg PO DAILY Qty: 8 0RF hydrocodone-homatropine [Hycodan] 5-1.5 mg/5 mL (5 mL) syrup 5 ml PO Q6H PRN (Reason: cough) 3 Days Qty: 60 0RF Primary Care Provider: Care Physician,No Primary Referrals: Carolyn Brown [Non-Staff] - 1 Week if not improving Care Physician,No Primary [Primary Care Provider] - Activity Restrictions/Additional Instructions: False negative COVID tests are common when you test in the first couple days. We recommend repeating your COVID test on 10/13 if you are still having symptoms. Disposition Disposition: Home, Self Care
--- NOTE | 2023-10-11 22:30 | ED.RN ---
Pt refusing all meds and all swabs.
[2023-10-11] MEDS: Ibuprofen 600 MG Tablet PO (22:46)
[2023-10-11] MEDS: Benzonatate 100 MG Capsule 200 MG PO (22:47)
[2023-10-11 22:48] VITALS: PULSE 71; RESP 16; O2SAT 98
== END 2023-10-11 22:48 | disposition home or self-care (01) ==
PROVIDERS: Emergency Provider Emergency Medicine; Visit Provider Emergency Medicine
DX: J06.9 Acute upper respiratory infection, unspecified (principal); R05.9 Cough, unspecified; J45.909 Unspecified asthma, uncomplicated; E66.9 Obesity, unspecified
CPT/HCPCS: 99283

== ENCOUNTER 2023-10-17 16:48 | Emergency (ER) | payer MEDICAID, SELFPAY ==
[2023-10-17 16:49] VITALS: BP 126/100; PULSE 79; RESP 20; TEMP 37.2; O2SAT 97; BMI 39.4
--- NOTE | 2023-10-17 17:02 | EX.ED.DYSGE1 ---
HPI <MIKEL Colbert - Last Filed: 10/17/23 19:07> History of Present Illness Chief Complaint: Shortness of Breath Narrative Narrative: A week and a half ago patient developed runny nose and dry cough. Her family members were sick and her son tested positive for COVID but she states she has had several negative home COVID tests. Her cough turned productive and yesterday she developed a fever of 103F. No fever today. She states she is coughing so much that she cannot sleep and has thrown up after coughing episode. Today she has left-sided chest discomfort and is concerned she could have bacterial pneumonia. She was seen here couple days ago and declined viral testing because her nose is irritated. She states she was prescribed Motrin and Tessalon Perles which are not helping the cough. She reports history of seasonal asthma and does not have an inhaler currently. Denies smoking. [facility] <MIKEL Colbert - Last Filed: 10/17/23 19:07> [facility] Medical History Asthma Chest pain, atypical Premature ventricular contraction Home Medications benzonatate 200 mg capsule 200 mg PO TID PRN cough #20 caps 10/11/23 [Rx Last Taken Unknown] albuterol sulfate 90 mcg/actuation aerosol inhaler (Ventolin HFA) 1 - 2 puff inhalation Q4H PRN PRN Wheezing 30 days #6.7 grams 10/17/23 [Rx Last Taken Unknown] azithromycin 250 mg tablet (Zithromax) 250 mg PO DAILY 4 days #4 tabs 10/17/23 [Rx Last Taken Unknown] Allergy/AdvReac Type Severity Reaction Status Date / Time coconut Allergy Hives Verified 10/17/23 16:49 diphenhydramine HCl Allergy Hives Verified 10/17/23 16:49 [From Benadryl] sweet potato Allergy Swelling Verified 10/17/23 16:49 sertraline [From Zoloft] AdvReac Other Verified 10/17/23 16:49 Family History Mother CVA (cerebral vascular accident) Surgical History H/O adenoidectomy History of section Social History Smoking Status: Never smoker alcohol intake: never substance use type: does not use caffeine: Yes Type: carbonated beverages Number of servings: 1 ROS <MIKEL Colbert - Last Filed: 10/17/23 19:07> ROS ED ROS Narrative Constitutional: Positive for fever, chills, malaise. ENT: Positive for rhinorrhea. CVS: Positive for chest pain. Respiratory: Positive for shortness of breath, cough. GI: Negative for abdominal pain. Neuro: Negative for headache. EXAM <MIKEL Colbert - Last Filed: 10/17/23 19:07> Physical Exam Narrative Exam Narrative: CONST: Patient sitting in no acute distress. EYES: Normal inspection. ENT: Normal inspection, moist mucous membranes. NECK: Normal inspection. RESP: Dry cough throughout exam, no respiratory distress, CTAB. CVS: Regular rate and rhythm, no murmur, no gallop. SKIN: Color normal, no rash, warm, dry, intact. EXTREMITIES: Normal appearance, no pedal edema. NEURO: Oriented x4. PSYCH: Normal affect. Const Vital Signs: 10/17/23 16:49 10/17/23 17:06 10/17/23 19:11 Temperature 99 F Temperature Source Temporal Pulse Rate 79 80 Respiratory Rate 20 H 20 H Respiratory Effort Normal Blood Pressure 126/100 H Blood Pressure Mean 108 Pulse Ox 97 Oxygen Delivery Method Room Air Room Air 10/17/23 19:11 Temperature Temperature Source Pulse Rate Respiratory Rate 20 H Respiratory Effort Blood Pressure Blood Pressure Mean Pulse Ox Oxygen Delivery Method <Dr. Mckay Candelaria MD - Last Filed: 10/17/23 23:21> Physical Exam Const Vital Signs: 10/17/23 16:49 10/17/23 17:06 10/17/23 19:11 Temperature 99 F Temperature Source Temporal Pulse Rate 79 80 Respiratory Rate 20 H 20 H Respiratory Effort Normal Blood Pressure 126/100 H Blood Pressure Mean 108 Pulse Ox 97 Oxygen Delivery Method Room Air Room Air 10/17/23 19:11 Temperature Temperature Source Pulse Rate Respiratory Rate 20 H Respiratory Effort Blood Pressure Blood Pressure Mean Pulse Ox Oxygen Delivery Method MDM <MIKEL Colbert - Last Filed: 10/17/23 19:07> MDM MDM Narrative Medical decision making narrative: Patient is a week and a half of URI symptoms and is developed a fever and worsening productive cough. She appears well and nontoxic. Vital signs within normal limits. She has significant dry cough during exam with clear lung sounds. Differential includes viral URI versus pneumonia. CXR shows right lower lobe pneumonia. She will be treated with azithromycin and albuterol. I discussed return precautions and she was discharged in stable condition Radiography Diagnostic Testing: Clinical Impression(s) from Imaging Studies Chest X-Ray 10/17/23 17:07 IMPRESSION: Right mid lower lung pneumonia, clinical correlation recommended. Electronically Signed: Mariela Ospina MD at 17:22 EST , ED attending interpretation of 1-view chest x-ray shows normal heart size, right lower lobe infiltrate. <Dr. Mckay Candelaria MD - Last Filed: 10/17/23 23:21> [facility] Radiography Diagnostic Testing: Clinical Impression(s) from Imaging Studies Chest X-Ray 10/17/23 17:07 IMPRESSION: Right mid lower lung pneumonia, clinical correlation recommended. Electronically Signed: Mariela Ospina MD at 17:22 EST , Treatment and Re-Evaluation :: I have personally performed a face to face assessment of the patient and have reviewed the LEANNA Note. I performed a substantive portion of the visit including all aspects of the following. My bowling findings include: History: Presents with a cough. It started about 4 days ago. She has family member with. She is already checked for COVID. She states she is now bringing up a little bit of green sputum but no blood. She does hear some wheezing or whistling intermittently at night. She does not have a history of asthma but she has used albuterol inhalers in the past. She is not a smoker. She is not having chest pain or leg pain or swelling. Exam: Is awake and alert. She does have a dry cough frequently. Oropharynx is well-hydrated. No exudate. Neck shows no stridor. Lungs do show slightly prolonged expiration but no actual wheezing. But when she coughs she does have some wheezing. No rhonchi or rales. No pain with a deep breath. Heart is regular. No murmur or muffled tones Medical Decision Making: Does not want COVID testing. We have done a chest x-ray. My independent interpretation of the patient's two-view chest x-ray shows some increased markings right more than left base but this may be body habitus and overlying soft tissue. We are pending the final reading Discharge Plan Triage Chief Complaint: Shortness of Breath ED Midlevel Provider: Breana Martins ED Provider: Mckay Candelaria Dx/Rx/DC Orders Clinical Impression: Community acquired pneumonia Instructions: ED Pneumonia (Adult) Prescriptions: New albuterol sulfate [Ventolin HFA] 90 mcg/actuation HFA aerosol inhaler 1 - 2 puff inhalation Q4H PRN PRN (Reason: Wheezing) 30 Days Qty: 6.7 0RF azithromycin [Zithromax] 250 mg tablet 250 mg PO DAILY 4 Days Qty: 4 0RF Rx Instructions: start on day 2 of therapy No Action benzonatate 200 mg capsule 200 mg PO TID PRN (Reason: cough) Qty: 20 0RF Primary Care Provider: Care Physician,No Primary Referrals: Care Physician,No Primary [Primary Care Provider] - Activity Restrictions/Additional Instructions: Use the inhaler as needed and take the antibiotic for pneumonia. Disposition Disposition: Home, Self Care Discharge Date/Time: 10/17/23 19:12
[2023-10-17 17:06] VITALS: O2SAT 98
--- NOTE | 2023-10-17 17:07 | RAD_ITS ---
STUDY: X-RAY CHEST REASON FOR EXAM: Female, 33 years old. cough TECHNIQUE: PA and lateral views of the chest. COMPARISON: 08/25/2023. FINDINGS: There is mild consolidation within the right mid lower lung compatible with pneumonia. Remainder of the lung sylvester are clear. There is no demonstrated pleural abnormality. Normal size heart. Normal mediastinum and cory. Normal visualized pulmonary arteries. Normal visualized aortic arch and descending thoracic aorta. Normal visualized thoracic spine. Normal visualized ribs, clavicles, and shoulders. There is no demonstrated abnormality of the visualized soft tissue structures of the upper abdomen. RAD/Chest PA and Lateral IMPRESSION: Right mid lower lung pneumonia, clinical correlation recommended. Electronically Signed: Mariela Ospina MD at 17:22 EST ,
[2023-10-17] MEDS: Azithromycin 250 MG Tablet 500 MG PO (19:09)
[2023-10-17 19:11] VITALS: PULSE 80; RESP 20
== END 2023-10-17 19:12 | disposition home or self-care (01) ==
PROVIDERS: Emergency Provider Emergency Medicine; Visit Provider Emergency Medicine
DX: J18.9 Pneumonia, unspecified organism (principal); J45.909 Unspecified asthma, uncomplicated
CPT/HCPCS: 71046; 99282

== ENCOUNTER 2023-10-21 14:57 | Emergency (ER) | payer MEDICAID, SELFPAY ==
[2023-10-21 14:58] VITALS: BP 106/86; PULSE 103; RESP 18; TEMP 36.2; O2SAT 97; BMI 36.0
--- NOTE | 2023-10-21 15:29 | RAD_ITS ---
STUDY: X-RAY - LEFT KNEE REASON FOR EXAM: Female, 33 years old. Pain TECHNIQUE: 4 view(s) of the knee. COMPARISON: None. FINDINGS: Normal visualized distal femur. Normal visualized proximal tibia and fibula. Normal proximal tibiofibular articulation. Normal medial femorotibial compartment. Normal lateral femorotibial compartment. Normal patellofemoral articulation. The soft tissue structures are unremarkable. RAD/Knee 4 or More Views IMPRESSION: Normal x-ray examination of the knee. Electronically Signed: Yan Parry MD at 15:56 EST ,
--- NOTE | 2023-10-21 15:30 | EDS_ITS ---
HPI History of Present Illness Chief Complaint: Cough Narrative Narrative: 83-year-old female presenting with continued cough. She states her fever resolved 2 days ago. She still having cough and congestion. She is having difficulty sleeping. She still has occasional nausea but has Zofran at home and she states is helping. She is able to eat and drink okay. He is making urine and stool. Patient states that one of her children was tested positive for COVID. The other 2 children tested negative but were also ill at the same time. She also tested negative for COVID. She was here few days ago with cough symptoms. She had a chest x-ray which showed pneumonia and was treated for a Z- Edmond and put on Tessalon Perles. She has an albuterol inhaler. Patient states that also on the way here she was walking and twisted her left knee and has pain on the medial aspect of the left knee. She was able to ambulate but states she called an [employer] because she did not want a walk following the hospital. [facility] Medical History Asthma Chest pain, atypical Premature ventricular contraction Home Medications benzonatate 200 mg capsule 200 mg PO TID PRN cough #20 caps 10/11/23 [Rx Last Taken Unknown] albuterol sulfate 90 mcg/actuation aerosol inhaler (Ventolin HFA) 1 - 2 puff inhalation Q4H PRN PRN Wheezing 30 days #6.7 grams 10/17/23 [Rx Last Taken Unknown] azithromycin 250 mg tablet (Zithromax) 250 mg PO DAILY 4 days #4 tabs 10/17/23 [Rx Last Taken Unknown] codeine 10 mg-guaifenesin 100 mg/5 mL oral liquid 5 ml PO Q6H PRN cold symptoms #120 mL 10/21/23 [Rx Last Taken Unknown] levofloxacin 500 mg tablet 500 mg PO DAILY #7 tabs 10/21/23 [Rx Last Taken Unknown] naproxen 500 mg tablet (Naprosyn) 500 mg PO BID PRN pain #20 tabs 10/21/23 [Rx Last Taken Unknown] Allergy/AdvReac Type Severity Reaction Status Date / Time coconut Allergy Hives Verified 10/17/23 16:49 diphenhydramine HCl Allergy Hives Verified 10/17/23 16:49 [From Benadryl] sweet potato Allergy Swelling Verified 10/17/23 16:49 sertraline [From Zoloft] AdvReac Other Verified 10/17/23 16:49 Family History Mother CVA (cerebral vascular accident) Surgical History H/O adenoidectomy History of section Social History Smoking Status: Never smoker alcohol intake: never substance use type: does not use caffeine: Yes Type: carbonated beverages Number of servings: 1 EXAM Physical Exam Const Vital Signs: 10/21/23 14:58 10/21/23 16:05 Temperature 97.1 F L Temperature Source Temporal Pulse Rate 103 H Respiratory Rate 18 Respiratory Effort Short of Breath Respiratory Depth Normal Respiratory Pattern Normal Blood Pressure 106/86 H Blood Pressure Mean 92 Pulse Ox 97 Oxygen Delivery Method Room Air Room Air MDM MDM MDM Narrative Medical decision making narrative: Patient presenting with continued cough and inability to sleep. Lungs are clear to auscultation bilaterally. Reviewed previous record and showed minor right lower lobe infiltrate. Patient reports that her child had COVID-19 and everybody else tested negative and most likely she had COVID she has been on a Z-Edmond this week and her fever stopped 2 days ago. She is eating and drinking normally. She making normal urine and stool. She was able to walk to the hospital without any difficulty other than she tripped and sprained her knee. X-ray of her left knee shows no acute fracture or subluxation interpretation. I suspect she might have a torn meniscus. Chest x-ray on my interpretation shows some residual infiltrate in right lower lung. We discussed this at length and likely she had COVID and this could be something viral and since he is doing better we can go without antibiotics or I could place her on a second antibiotic. She prefers to take another round of antibiotics so I prescribed her Levaquin. She is given Robitussin as well as Naprosyn for home. She is counseled to use R.I.C.E therapy, and the Naprosyn I provided. Return precautions discussed. Impression: 1. Pneumonia 2. Left knee strain Lab Data Attestation: I reviewed the patient's lab results. Radiography Diagnostic Testing: Clinical Impression(s) from Imaging Studies Knee X-Ray 10/21/23 15:29 IMPRESSION: Normal x-ray examination of the knee. Electronically Signed: Yan Parry MD at 15:56 EST , Chest X-Ray 10/21/23 15:40 IMPRESSION: Mild residual infiltrate in the right lung base. Electronically Signed: Yan Parry MD at 15:56 EST , Discharge Plan Triage Chief Complaint: Cough ED Provider: Jaxon Roland Dx/Rx/DC Orders Instructions: ED Knee Sprain, ED Pneumonia (Adult) Prescriptions: New codeine-guaifenesin 10-100 mg/5 mL liquid 5 ml PO Q6H PRN (Reason: cold symptoms) Qty: 120 0RF naproxen [Naprosyn] 500 mg tablet 500 mg PO BID PRN (Reason: pain) Qty: 20 0RF levofloxacin 500 mg tablet 500 mg PO DAILY Qty: 7 0RF No Action albuterol sulfate [Ventolin HFA] 90 mcg/actuation HFA aerosol inhaler 1 - 2 puff inhalation Q4H PRN PRN (Reason: Wheezing) 30 Days Qty: 6.7 0RF azithromycin [Zithromax] 250 mg tablet 250 mg PO DAILY 4 Days Qty: 4 0RF Rx Instructions: start on day 2 of therapy benzonatate 200 mg capsule 200 mg PO TID PRN (Reason: cough) Qty: 20 0RF Primary Care Provider: Care Physician,No Primary Referrals: Carolyn Brown [facility] [Provider Group] - 3-5 Days Care Physician,No Primary [Primary Care Provider] - Disposition Disposition: Home, Self Care
[2023-10-21] MEDS: Naproxen 500 MG Tablet PO (15:39)
--- NOTE | 2023-10-21 15:40 | RAD_ITS ---
STUDY: X-RAY CHEST REASON FOR EXAM: Female, 33 years old. Cough TECHNIQUE: Single AP portable view of the chest. COMPARISON: Comparison is made with prior study October 17, 2023. FINDINGS: Mild residual infiltrate at the right lung base. There is no demonstrated pleural abnormality. Normal size heart. Normal mediastinum and cory. Normal visualized pulmonary arteries. Normal visualized aortic arch and descending thoracic aorta. Normal visualized thoracic spine. Normal visualized ribs, clavicles, and shoulders. There is no demonstrated abnormality of the visualized soft tissue structures of the upper abdomen. RAD/Chest 1 View (Portable) IMPRESSION: Mild residual infiltrate in the right lung base. Electronically Signed: Yan Parry MD at 15:56 EST ,
[2023-10-21 16:05] VITALS: O2SAT 99
== END 2023-10-21 16:22 | disposition home or self-care (01) ==
PROVIDERS: Emergency Provider Student in an Organized Health Care Education/Training Program; Visit Provider Student in an Organized Health Care Education/Training Program
DX: J18.9 Pneumonia, unspecified organism (principal); S83.92XA Sprain of unspecified site of left knee, initial encounter; X58.XXXA Exposure to other specified factors, initial encounter
CPT/HCPCS: 71045; 73564; 99282

== ENCOUNTER 2023-10-28 20:52 | Emergency (ER) | payer MEDICAID, SELFPAY ==
[2023-10-28 20:59] VITALS: BP 119/72; PULSE 89; RESP 15; TEMP 36.1; O2SAT 96; BMI 39.8
[2023-10-28 22:40] VITALS: PULSE 80; O2SAT 97
--- NOTE | 2023-10-28 23:23 | EX.ED.SAOD ---
HPI History of Present Illness Chief Complaint: Substance Abuse Informant: patient Onset/Context/Timing Onset: Today Current Severity: Gone Maximum Severity: Mild Narrative Narrative: 33-year-old female past medical history of asthma. Christi intentionally took a half a THC gummy and felt odd afterwards. She assumes she was feeling high. Thought her throat might be closing off. But now feels better. This occurred around 8 PM. She is doing well now at almost 1130. Currently no complaints. Prior similar symptoms: No Recent Illness/Hospitalization: No PFSH PFSH Medical History Asthma Chest pain, atypical Premature ventricular contraction Home Medications benzonatate 200 mg capsule 200 mg PO TID PRN cough #20 caps 10/11/23 [Rx Last Taken Unknown] albuterol sulfate 90 mcg/actuation aerosol inhaler (Ventolin HFA) 1 - 2 puff inhalation Q4H PRN PRN Wheezing 30 days #6.7 grams 10/17/23 [Rx Last Taken Unknown] azithromycin 250 mg tablet (Zithromax) 250 mg PO DAILY 4 days #4 tabs 10/17/23 [Rx Last Taken Unknown] codeine 10 mg-guaifenesin 100 mg/5 mL oral liquid 5 ml PO Q6H PRN cold symptoms #120 mL 10/21/23 [Rx Last Taken Unknown] levofloxacin 500 mg tablet 500 mg PO DAILY #7 tabs 10/21/23 [Rx Last Taken Unknown] naproxen 500 mg tablet (Naprosyn) 500 mg PO BID PRN pain #20 tabs 10/21/23 [Rx Last Taken Unknown] Allergy/AdvReac Type Severity Reaction Status Date / Time coconut Allergy Hives Verified 10/28/23 21:06 diphenhydramine HCl Allergy Hives Verified 10/28/23 21:06 [From Benadryl] sweet potato Allergy Swelling Verified 10/28/23 21:06 sertraline [From Zoloft] AdvReac Other Verified 10/28/23 21:06 Family History Mother CVA (cerebral vascular accident) Surgical History H/O adenoidectomy History of section Social History Smoking Status: Never smoker alcohol intake: never substance use type: does not use caffeine: Yes Type: carbonated beverages Number of servings: 1 ROS ROS ED ROS Narrative Recent URI. Review of Systems ROS Unobtainable: Denies due to encephalopathy Constitutional Constitutional ED: Denies chills or fever(s) Eyes Eyes: Denies blurry vision ENT ENT ED: Denies ear pain Cardiovascular Cardiovascular: Denies chest pain Respiratory/Chest Respiratory/Chest: Reports cough Gastrointestinal Gastrointestinal: Denies abdominal pain Genitourinary Genitourinary ED: Denies dysuria Musculoskeletal Musculoskeletal: Denies arthralgias Integumentary Denies abscess Neurologic Neurologic: Denies headache(s) Psychiatric Psychiatric: Denies anxiety or depression Endocrine Endocrinology: Denies cold intolerance or heat intolerance Hematologic/Lymphatic Hematologic/Lymphatic: Denies easy bleeding, easy bruising or lymphadenopathy Allergic/Immunologic Allergic/Immunologic ED: Denies mouth swelling, tongue swelling or urticaria EXAM Physical Exam Narrative Exam Narrative: Well-appearing 33-year-old female. Vital signs stable afebrile. Pulse ox 97% room air no hypoxia. H EENT exam normal. Posterior pharynx normal. No trouble swallowing or breathing. No stridor or drooling. Neck nontender. Lungs clear to auscultation bilaterally. Heart regular rhythm no murmur. Abdomen soft nontender. Moving all 4 extremities. Skin no rashes. Neurologically she is awake alert. Answering questions following commands. Benign exam. Const Vital Signs: 10/28/23 20:59 10/28/23 22:40 Temperature 97.0 F L Temperature Source Temporal Pulse Rate 89 80 Respiratory Rate 15 Blood Pressure 119/72 Blood Pressure Mean 87 Pulse Ox 96 97 Oxygen Delivery Method Room Air Room Air Positive well nourished and well developed; Negative for cachectic, contractures or unkempt General Appearance ED: well developed and NAD; Negative for unkempt, cachectic, contractures or pallor Nutritional Appearance: Negative for cachectic HEENT Reports moist mucous membranes atraumatic; Negative for trauma or tenderness Eyes PERRL and EOMs intact bilaterally General Eye ED: Negative for pale conjunctiva, scleral icterus or other Neck no lymphadenopathy, supple and no JVD Thyroid: Negative for tender Lymph Lymphatic: no lymphadenopathy noted; Negative for lymphadenopathy Chest Wall inspection of chest normal and palpation of chest normal Chest: Negative for other Resp normal respiratory effort and clear to auscultation bilaterally Effort and Inspection: Negative for retractions Auscultation: Negative for rales, rhonchi or wheezes Cardio regular rate, regular rhythm, S1 normal heart sound, S2 normal heart sound and no murmurs Rate: Negative for bradycardia or tachycardic Rhythm: Negative for abnormal rhythm Bruits: Negative for other GI soft to palpation, non-tender, non-distended and no masses Inspection: Negative for abdominal distention Auscultation: Negative for hyperactive bowel sounds Palpation: Negative for tender, guarding or rigid Bladder / Kidney Exam: No other Back/Spine no CVA tenderness General Back: Negative for CVA tenderness Cervical Spine: Negative for cervical spine tenderness Thoracic Spine / Upper Back: Negative for thoracic spinal tenderness Lumbar Spine / Lower Back: Negative for lumbar spinal tenderness Coccyx: Negative for swelling Extremity General Extremety ED: Negative for edema or tenderness General Extremity: Negative for edema Neuro oriented x3 and CN's II-XII intact bilaterally Sensorium / Orientation: alert, oriented to person, oriented to place and oriented to time; Negative for confused, lethargic or stuporous Speech: speech normal Motor Exam: strength 5/5 throughout Psych mental status grossly normal and thought process normal Appearance: Negative for unkempt Attitude: No belligerent and No aggressive Mood & Affect: Negative for depressed, anxious or tearful Skin General Skin Exam: Negative for jaundice or pallor Lesions: no lesions Rashes: no rashes Trauma: Negative for abrasion MDM MDM MDM Narrative Medical decision making narrative: 33-year-old with a reaction to a THC gummy. Current exam is normal. She will be discharged home. Does not need any labs or imaging. Discharge Plan Triage Chief Complaint: Substance Abuse ED Provider: aYron Fay Dx/Rx/DC Orders Clinical Impression: History of asthma, Adverse reaction to drug Instructions: ED ADVERSE DRUG REACTION Allergic Prescriptions: No Action albuterol sulfate [Ventolin HFA] 90 mcg/actuation HFA aerosol inhaler 1 - 2 puff inhalation Q4H PRN PRN (Reason: Wheezing) 30 Days Qty: 6.7 0RF azithromycin [Zithromax] 250 mg tablet 250 mg PO DAILY 4 Days Qty: 4 0RF Rx Instructions: start on day 2 of therapy codeine-guaifenesin 10-100 mg/5 mL liquid 5 ml PO Q6H PRN (Reason: cold symptoms) Qty: 120 0RF naproxen [Naprosyn] 500 mg tablet 500 mg PO BID PRN (Reason: pain) Qty: 20 0RF levofloxacin 500 mg tablet 500 mg PO DAILY Qty: 7 0RF benzonatate 200 mg capsule 200 mg PO TID PRN (Reason: cough) Qty: 20 0RF Primary Care Provider: Care Physician,No Primary Referrals: Carolyn Brown [Non-Staff] - As Needed Care Physician,No Primary [Primary Care Provider] - Activity Restrictions/Additional Instructions: Reaction to THC gummy. Your exam is normal now. Obviously I would not use again.
== END 2023-10-28 23:37 | disposition home or self-care (01) ==
LOC: ED 23:26
PROVIDERS: Emergency Provider Emergency Medicine; Visit Provider Emergency Medicine
DX: T40.715A Adverse effect of cannabis, initial encounter (principal)
CPT/HCPCS: 99282

== ENCOUNTER 2023-12-05 10:51 | Emergency (ER) | payer MEDICAID, SELFPAY ==
[2023-12-05 10:52] VITALS: BP 123/71; PULSE 76; RESP 14; TEMP 36.2; O2SAT 98; BMI 40.2
--- NOTE | 2023-12-05 11:54 | ED.RN ---
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 RN STATES SHE IS UNABLE TO DECIDE THAT, AND PATIENT SHOULD BE SEEN BY A DR. PATIENT STATES I FELL AT 0900 AND IT HAS BEEN 3 HOURS I FEEL COMPLETELY FINE AND NO ONE WANTS TO SPEND THEIR WHOLE DAY IN THE HOSPITAL SO I AM LEAVING.
== END 2023-12-05 11:55 | disposition left against medical advice (07) ==
LOC: ED 12:20
PROVIDERS: Emergency Provider Student in an Organized Health Care Education/Training Program; Visit Provider Student in an Organized Health Care Education/Training Program
DX: Z53.21 Procedure and treatment not carried out due to patient leaving prior to being seen by health care provider (principal)

== ENCOUNTER 2023-12-09 23:25 | Emergency (ER) | payer MEDICAID, SELFPAY ==
[2023-12-09 23:28] VITALS: BP 124/78; PULSE 76; RESP 18; TEMP 36.7; O2SAT 98
--- NOTE | 2023-12-09 23:37 | RAD_ITS ---
INDICATION: chest pain EXAMINATION/TECHNIQUE: X-RAY - XR Chest 1 View COMPARISON: No relevant prior comparison study available FINDINGS: LINES/DEVICES: None. LUNGS: The lungs are well expanded. No consolidation, edema or effusion. No pneumothorax. MEDIASTINUM AND CARDIOVASCULAR STRUCTURES: Cardiac silhouette not enlarged. Central airways and mediastinal contour are unremarkable. BONES AND SOFT TISSUES: Unremarkable. RAD/Chest 1 View (Portable) IMPRESSION: No acute pulmonary finding. Electronically Signed: Raphael Hatfield MD at 0:19 EST ,
--- NOTE | 2023-12-09 23:38 | ED.VIS.CHEST ---
HPI History of Present Illness Chief Complaint: Chest Pain Narrative Narrative: 33-year-old female states she has past medical history of factor V Leiden deficiency and her family, presents with cough that she has had for 3 months, and chest pain on the left side of her chest that began a few hours ago this evening. She states that all day she has been sweaty. She denies any exacerbating or alleviating factors. She states she called her sister who is a try on baster and decided to get evaluated for left-sided chest pain. No fevers or chills. No other symptoms. PFSH PFSH Medical History Asthma Chest pain, atypical Premature ventricular contraction Home Medications benzonatate 200 mg capsule 200 mg PO TID PRN cough #20 caps 10/11/23 [Rx Last Taken Unknown] albuterol sulfate 90 mcg/actuation aerosol inhaler (Ventolin HFA) 1 - 2 puff inhalation Q4H PRN PRN Wheezing 30 days #6.7 grams 10/17/23 [Rx Last Taken Unknown] azithromycin 250 mg tablet (Zithromax) 250 mg PO DAILY 4 days #4 tabs 10/17/23 [Rx Last Taken Unknown] codeine 10 mg-guaifenesin 100 mg/5 mL oral liquid 5 ml PO Q6H PRN cold symptoms #120 mL 10/21/23 [Rx Last Taken Unknown] levofloxacin 500 mg tablet 500 mg PO DAILY #7 tabs 10/21/23 [Rx Last Taken Unknown] naproxen 500 mg tablet (Naprosyn) 500 mg PO BID PRN pain #20 tabs 10/21/23 [Rx Last Taken Unknown] Allergy/AdvReac Type Severity Reaction Status Date / Time coconut Allergy Hives Verified 12/09/23 23:30 diphenhydramine HCl Allergy Hives Verified 12/09/23 23:30 [From Benadryl] sweet potato Allergy Swelling Verified 12/09/23 23:30 sertraline [From Zoloft] AdvReac Other Verified 12/09/23 23:30 Family History Mother CVA (cerebral vascular accident) Surgical History H/O adenoidectomy History of section Social History Smoking Status: Never smoker alcohol intake: never substance use type: does not use caffeine: Yes Type: carbonated beverages Number of servings: 1 ROS ROS ED ROS Narrative Constitutional: No fever, no chills. HEENT: No sore throat. No neck pain. No loss of vision. No rhinorrhea. Cardiovascular: Left-sided chest pain. No palpitations. No pedal edema. Respiratory: 3 months cough, no shortness of breath. Abdominal: No abdominal pain. No nausea. No vomiting. Genitourinary: No dysuria. No hematuria. Musculoskeletal: No myalgias. No arthralgias. Neurologic: No headaches. No dizziness. No lightheadedness. Skin: No rash. No change in color. Psychiatric: No depression. No anxiety. EXAM Physical Exam Narrative Exam Narrative: Afebrile. Vital signs noted. HEENT: Normocephalic. Atraumatic. PERRL, EOMI. Neck soft and supple. No point tenderness or step off. Cardiovascular: Regular rate and rhythm. No murmurs, rubs, or gallops appreciated. Respiratory: No tachypnea. Lungs clear to auscultation bilaterally. Gastrointestinal: Abdomen soft, nontender, with normoactive bowel sounds. No rebound or guarding. Neurological: Awake. Alert. Nonfocal, nonlateralizing. Skin: No rash. Normal color. No pallor. Musculoskeletal: No pedal edema. Full range of motion extremities. Psychiatric: Mild anxiety Const Vital Signs: 12/09/23 23:28 12/09/23 23:53 12/09/23 23:53 Temperature 98.0 F Temperature Source Temporal Pulse Rate 76 Respiratory Rate 18 Respiratory Effort Normal Non-Labored Blood Pressure 124/78 H Blood Pressure Mean 93 Pulse Ox 98 Oxygen Delivery Method Room Air Room Air 12/10/23 01:52 Temperature Temperature Source Pulse Rate 60 Respiratory Rate 16 Respiratory Effort Blood Pressure Blood Pressure Mean Pulse Ox 100 Oxygen Delivery Method Room Air Heart Score History: Slightly/Non-Suspicious ECG: Normal Age: </= 45 years Risk Factors: 1 or 2 Risk Factors Troponin: </= Normal Limit Score: 1 MDM MDM MDM Narrative Medical decision making narrative: In the differential diagnosis is ACS versus pulmonary embolism versus pneumonia versus pneumothorax. Chest pain workup was pursued. I reviewed the patient's prior chart and she has had atypical chest pain in the past as one of her problems. Currently her pulse ox is 98% on room air and she is not tachycardic so I have low suspicion for pulmonary embolism. I reviewed her laboratory work and she has normal white count of 8.9, hemoglobin normal at 12.7, hematocrit 38.9, platelet count normal at 247. Her D-dimer is elevated 0.64, but in review of her prior laboratories, it is chronically elevated and has been higher at 0.67. Review of her CMP shows chloride 109 which I think is nonspecific, normal BUN of 14 and creatinine 0.63. Glucose is appropriately elevated at 104 with a low anion gap of 4. Serum is negative. EKG was obtained and interpreted by myself independently as normal sinus rhythm with PVCs at 86 bpm without other ectopy or acute ST changes. No STEMI. I do feel that she can be ruled out with troponins. Second HST is currently pending. As she had an elevated D-dimer, CTA was performed which shows no evidence of pulmonary embolism but she has bronchial wall thickening consistent with bronchitis. Chest x-ray in 1 view interpreted by myself independently shows no evidence of an acute process. This was obtained before the elevated D-dimer had returned. I reviewed the radiology report which confirms my independent interpretation. Upon repeat examination, she is speaking on her cellular telephone. She is in no acute distress. I feel that as long as her second HST shows no significant delta troponin that she can be discharged to follow-up with her primary care provider. It has returned and is 5 for a delta of 0. Disposition is discharged home in stable condition. History & Record Review Discussion w/independent historian: Patient Additional record(s) reviewed:: Prior ED visit and Prior labs Lab Data Attestation: I reviewed the patient's lab results. Labs: Laboratory Results - last 24 hr 12/10/23 12/10/23 00:07 02:29 WBC 8.9 RBC 4.97 Hgb 12.7 Hct 38.9 MCV 78.3 L MCH 25.6 L MCHC 32.6 RDW Std Deviation 42.2 RDW Coeff of Yahir 14.8 H Plt Count 247 MPV 11.7 Immature Gran % (Auto) 0.900 Neut % (Auto) 58.2 Lymph % (Auto) 30.4 [place] % (Auto) 6.6 Eos % (Auto) 3.5 Baso % (Auto) 0.4 Absolute Neuts (auto) 5.2 Absolute Lymphs (auto) 2.72 Nucleated RBC % 0 D-Dimer Quant (PE/DVT) 0.64 H* Sodium 138 Potassium 3.9 Chloride 109 H Carbon Dioxide 25.0 Anion Gap 4 L BUN 14 Creatinine 0.63 Est GFR (MDRD) Af Amer 138 Est GFR (MDRD) Non-Af 114 BUN/Creatinine Ratio 22.2 H Glucose 104 Calcium 9.3 Troponin I High Sens 5 5 Serum , Qual NEGATIVE Radiography Diagnostic Testing: Clinical Impression(s) from Imaging Studies Chest X-Ray 12/09/23 23:37 IMPRESSION: No acute pulmonary finding. Electronically Signed: Raphael Hatfield MD at 0:19 EST Reading Location ID and State: [facility] / [place] Tel , Service support , Chest CTA 12/10/23 00:34 IMPRESSION: * No pulmonary embolism. * Minimal diffuse bronchial wall thickening as can be seen with asthma or mild bronchitis. Electronically Signed: Raphael Hatfield MD at 1:53 EST , Discharge Plan Triage Chief Complaint: Chest Pain ED Provider: Chetan Al Dx/Rx/DC Orders Clinical Impression: Cough, Chest pain, atypical, Elevated d-dimer, Bronchitis Instructions: ED Chest Pain, Noncardiac, ED Bronchitis, No Antibiotic (Adult) Prescriptions: No Action albuterol sulfate [Ventolin HFA] 90 mcg/actuation HFA aerosol inhaler 1 - 2 puff inhalation Q4H PRN PRN (Reason: Wheezing) 30 Days Qty: 6.7 0RF azithromycin [Zithromax] 250 mg tablet 250 mg PO DAILY 4 Days Qty: 4 0RF Rx Instructions: start on day 2 of therapy codeine-guaifenesin 10-100 mg/5 mL liquid 5 ml PO Q6H PRN (Reason: cold symptoms) Qty: 120 0RF naproxen [Naprosyn] 500 mg tablet 500 mg PO BID PRN (Reason: pain) Qty: 20 0RF levofloxacin 500 mg tablet 500 mg PO DAILY Qty: 7 0RF benzonatate 200 mg capsule 200 mg PO TID PRN (Reason: cough) Qty: 20 0RF Primary Care Provider: Care Physician,No Primary Referrals: Care Physician,No Primary [Primary Care Provider] - Disposition Disposition: Home, Self Care
[2023-12-09] MEDS: Aspirin 81 MG TAB.CHEW 324 MG PO (23:51)
[2023-12-10 00:28] LABS: Absolute Lymphocyte Count 2.72 X10^3/uL (0.83-4.51); Absolute Neutrophil Count 5.2 X10^3/uL (2.0-7.7); Basophil# 0.04 X10^3/uL; Basophil% 0.4 % (0-1); Eosinophil# 0.31 X10^3/uL; Eosinophils% 3.5 % (0-5); Hematocrit 38.9 % (37-47); Hemoglobin 12.7 g/dL (12.0-15.0); Lymphocyte # 2.72 X10^3/ul (0.83-4.51); Lymphocyte % 30.4 % (19-41); Mean Corp Hgb Conc 32.6 g/dL (32-36); Mean Corpuscular Hgb 25.6 pg (27.0-32.0); Mean Corpuscular Volume 78.3 fL (81-99); Mean Platelet Vol. 11.7 fl (6.2-12.0); Monocyte# 0.59 X10^3/uL; Monocyte% 6.6 % (0-10); NRBC Flagged by Analyzer 0 % (0-5); Neutrophil % 58.2 % (47-70); Platelet Count 247 K/mm3 (150-450); RBC Distribution Width CV 14.8 % (11.6-14.6); RBC Distribution Width SD 42.2 fl (35.1-43.9); Red Blood Count 4.97 M/mm3 (4.2-5.4); White Blood Count 8.9 K/mm3 (4.4-11.0)
[2023-12-10 00:29] LABS: D-Dimer Quantitative (DVT/PE) 0.64 FEU/ug/m (0.27-0.49)
--- NOTE | 2023-12-10 00:34 | CT_ITS ---
STUDY: CTA CHEST REASON FOR EXAM: Female, 33 years old. elevated d dimer RADIATION DOSAGE (If Supplied By Facility): CTDIvol = ( 13.84 ) mGy, DLP = ( 478.14 ) mGycm TECHNIQUE: The examination was performed with the intravenous administration of IV 100mL Isovue-370. Post-processing of the angiographic images was performed, with multiplanar reformation and 3D reconstruction. Individualized dose optimization techniques were used for this CT. COMPARISON: 06.19.2020 FINDINGS: PULMONARY ARTERIES: Normal enhancement of the main pulmonary artery and right and left pulmonary arteries. Normal enhancement of the bilateral peripheral pulmonary arteries. There is no demonstrated pulmonary embolism. AORTA: Normal thoracic aorta and visualized great vessels. There is no demonstrated aortic dissection. MEDIASTINUM: Normal heart and pericardium. Normal mediastinum. Normal hilar regions. LUNGS/PLEURA: Normal visualized trachea and bronchi. The lungs are well expanded. Mild diffuse bronchial thickening as can be seen with bronchitis or asthma. No acute pneumonic process. No pleural effusion or pneumothorax. CHEST WALL: Normal chest wall structures. UPPER ABDOMEN: Normal visualized upper abdomen. OSSEOUS STRUCTURES: No acute or suspicious osseous abnormality. CT/CTA Chest W/WO Contrast IMPRESSION: * No pulmonary embolism. * Minimal diffuse bronchial wall thickening as can be seen with asthma or mild bronchitis. Electronically Signed: Raphael Hatfield MD at 1:53 EST ,
[2023-12-10 00:35] LABS: Anion Gap 4 (5-15); BUN 14 mg/dL (7-18); BUN/Creat Ratio 22.2 RATIO (10-20); Calcium,Total 9.3 mg/dL (8.5-10.1); Chloride 109 mmol/L (98-107); Creatinine, Serum 0.63 mg/dL (0.55-1.02); EST Glomerular Filtration Rate 114 mL/min (>60); Est Glom Filt Rate - Afr Amer 138 mL/min (>60); Glucose 104 mg/dL (74-106); Potassium 3.9 mmol/L (3.5-5.1); Sodium Level 138 mmol/L (136-145); Troponin-I HS (w/2H Reflex) 5 pg/mL (3.0-54.0)
[2023-12-10 00:53] LABS: Internal QC Validated? YES +Cl - CLEAR BKGD; Pregnancy, Serum, hCG Quali. NEGATIVE Negative
[2023-12-10] MEDS: 0.9% Normal Saline (1000mL) 1,000 ML 999 ML IV (01:02)
[2023-12-10 01:52] VITALS: PULSE 60; RESP 16; O2SAT 100
[2023-12-10 02:09] LABS: Reflex Troponin-HS? (from REC) Y
[2023-12-10 02:56] LABS: Troponin-I HS 5 pg/mL (3.0-54.0)
[2023-12-10 03:22] VITALS: BP 109/71; PULSE 63; RESP 18; O2SAT 96
== END 2023-12-10 03:32 | disposition home or self-care (01) ==
PROVIDERS: Emergency Provider Emergency Medicine; Visit Provider Emergency Medicine
DX: R07.89 Other chest pain (principal); J40 Bronchitis, not specified as acute or chronic; R79.89 Other specified abnormal findings of blood chemistry
CPT/HCPCS: 71045; 71275; 80048; 84484; 84703; 85025; 85379; 87631; 93005; 99283; J7030; Q9967; A4216

== ENCOUNTER 2024-10-22 14:52 | Emergency (ER) | payer MEDICAID, SELFPAY ==
[2024-10-22 14:53] VITALS: BP 138/81; PULSE 80; RESP 16; TEMP 36.6; O2SAT 99; BMI 39.8
--- NOTE | 2024-10-22 15:25 | RAD_ITS ---
INDICATION: cough, fever EXAMINATION/TECHNIQUE: X-RAY - XR Chest 2 Views COMPARISON: 07/03/2024 FINDINGS: LIFE-SUPPORT AND LINES: 1. None HEART AND VESSELS: The cardiac silhouette, pulmonary vasculature have normal appearance. No evidence of congestive failure. LUNGS AND PLEURAL SPACES: Diffuse interstitial infiltrate at the RIGHT lung base at the RIGHT cardiophrenic angle. Similar though less extensive changes at the lung bases. No airspace consolidation. No pulmonary mass is noted. MEDIASTINUM AND HILAR REGIONS: No masses adenopathy noted. No areas of calcification. Visualized upper airway is normal in position. BONY ELEMENTS: No acute bony changes noted. RAD/Chest PA and Lateral IMPRESSION: 1. Bibasilar interstitial infiltrate/pneumonia greater on the RIGHT than LEFT. No airspace consolidation or effusion. 2. No evidence of congestive failure. Electronically Signed: Vasquez Brown MD at 15:38 EST ,
--- NOTE | 2024-10-22 15:34 | EX.ED.VIS.UR ---
HPI HPI - URI History of Present Illness Chief Complaint: Shortness of Breath Informant: patient Narrative Narrative: Patient is a 34-year-old female presenting with fever and worsening cough. She is concerned for possible pneumonia. She states she started having symptoms 3 days ago. She is been feeling generally weak and having bodyaches. She is developed a cough in the past 2 days. Yesterday she started having some yellow phlegm production. She had fever for 2 days but none today. She has had associated postnasal drip. Took DayQuil earlier this morning. Her 3-year-old and 6-year-old children were recently sick. She denies any tobacco use. She states at some point doctor says she might have seasonal asthma. She denies any other complaints at this time. No report of nausea, vomiting or abdominal pain. No chest pain. ROS ROS ED Constitutional Constitutional ED: Reports chills and fever(s) Eyes Eyes: Denies change in vision ENT ENT ED: Reports rhinorrhea and sore throat; Denies ear pain Cardiovascular Cardiovascular: Denies chest pain or palpitations Respiratory/Chest Respiratory/Chest: Reports cough, dyspnea and sputum Gastrointestinal Gastrointestinal: Denies abdominal pain, nausea or vomiting Musculoskeletal Musculoskeletal: Reports myalgias; Denies arthralgias Integumentary Denies rash Neurologic Neurologic: Denies weakness PFSH [facility] Medical History Asthma Premature ventricular contraction Chest pain, atypical Home Medications ?Medication ?Instructions ?Recorded ?Last Taken ?Type albuterol sulfate 90 mcg/actuation 1 - 2 puff inhalation Q4H PRN PRN 10/17/23 Unknown Rx aerosol inhaler (Ventolin HFA) Wheezing 30 days #6.7 grams albuterol sulfate 90 mcg/actuation 1 - 2 puff inhalation Q4H PRN PRN 10/22/24 Unknown Rx aerosol inhaler (Ventolin HFA) Wheezing #1 inh azithromycin 250 mg tablet 250 mg PO DAILY #4 TABLETS 10/22/24 Unknown Rx prednisone 20 mg tablet 40 mg (2 x 20 mg) PO DAILY #8 tabs 10/22/24 Unknown Rx Allergy/AdvReac Type Severity Reaction Status Date / Time coconut Allergy Hives Verified 10/22/24 15:05 diphenhydramine HCl (From Allergy Hives Verified 10/22/24 15:05 Benadryl) sweet potato Allergy Swelling Verified 10/22/24 15:05 sertraline (From Zoloft) AdvReac Other Verified 10/22/24 15:05 Family History Mother CVA (cerebral vascular accident) Surgical History H/O adenoidectomy History of section Social History Smoking Status: Never smoker alcohol intake: never substance use type: does not use caffeine: Yes Type: carbonated beverages Number of servings: 1 EXAM Physical Exam Const Vital Signs: 10/22/24 14:53 10/22/24 15:04 10/22/24 15:40 Temperature 97.8 F Temperature Source Oral Pulse Rate 80 80 Respiratory Rate 16 16 Respiratory Effort Short of Breath Respiratory Depth Normal Respiratory Pattern Normal Blood Pressure 138/81 H Blood Pressure Mean 100 Pulse Ox 99 Oxygen Delivery Method Room Air Room Air Positive well nourished and well developed General Appearance ED: well developed and NAD HEENT Reports moist mucous membranes HEENT Narrative: Normal tympanic membranes. Normal nares. Mild injection of the oropharynx. Normal tonsils no erythema or exudate present. normocephalic Eyes PERRL Neck no lymphadenopathy, supple and no meningeal signs Resp normal respiratory effort Resp Narrative: Mildly coarse breath sounds scattered throughout. No wheezing appreciated. Repetitive cough that is dry nonproductive. No respiratory distress. Cardio Rate: regular rate Rhythm: regular rhythm GI non-tender and non-distended Extremity normal to inspection Neuro oriented x3 Sensorium / Orientation: alert Motor Exam: Negative for general weakness Psych mental status grossly normal Skin Rashes: no rashes MDM MDM MDM Narrative Medical decision making narrative: Patient presents for 3 days of flulike symptoms and cough. She is concerned for pneumonia. On exam she does have some slightly abnormal breath sounds will obtain chest x-ray. Suspect this is more viral/bronchitis. She is afebrile with normal vital signs and 99% on room air. She is given a DuoNeb as I suspect she has a component of cough variant asthma at this point. 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 Chest x-ray on my interpretation looks more like a viral pattern however radiology did read it as a bibasilar interstitial infiltrate/pneumonia right greater than left. Will cover the patient with mycoplasma with azithromycin. Patient does have improvement on repeat evaluation but continues to have a mild wheeze in her right upper lung field. She is moving air better. She is agreeable with another breathing treatment. I have started on prednisone as well. Given first dose of azithromycin and prednisone in the emergency room. As patient is not hypoxic I do not think she requires blood work or admission. Is given return precautions. Her to follow-up with her primary care doctor. Discharged home in stable condition. Radiography Diagnostic Testing: Clinical Impression(s) from Imaging Studies Chest X-Ray 10/22/24 15:25 IMPRESSION: 1. Bibasilar interstitial infiltrate/pneumonia greater on the RIGHT than LEFT. No airspace consolidation or effusion. 2. No evidence of congestive failure. Electronically Signed: Vasquez Brown MD at 15:38 EST , Discharge Plan Triage Chief Complaint: Shortness of Breath ED Provider: Tressa Garcia Dx/Rx/DC Orders Clinical Impression: Bronchitis, acute, with bronchospasm Instructions: ED Bronchitis with Wheezing (Adult) Prescriptions: New albuterol sulfate [Ventolin HFA] 90 mcg/actuation HFA aerosol inhaler 1 - 2 puff inhalation Q4H PRN PRN (Reason: Wheezing) Qty: 1 0RF azithromycin 250 mg tablet 250 mg PO DAILY Qty: 4 0RF prednisone 20 mg tablet 40 mg PO DAILY Qty: 8 0RF No Action albuterol sulfate [Ventolin HFA] 90 mcg/actuation HFA aerosol inhaler 1 - 2 puff inhalation Q4H PRN PRN (Reason: Wheezing) 30 Days Qty: 6.7 0RF Primary Care Provider: Daksha Mueller NP Referrals: Daksha Mueller NP, [facility] [Primary Care Provider] - Activity Restrictions/Additional Instructions: I suspect you have a respiratory virus is causing her symptoms. It is possible you could have a subtle pneumonia developing as well. You been placed on steroids and inhaler to help with your coughing and work of breathing and also given a short course of antibiotics to treat a possible pneumonia. Make sure drink plenty fluids. Alternate ibuprofen and Tylenol as needed for aches, pains and fevers. Your cough might persist for the next 2 to 3 weeks but after the first week you should start to feel better. If you have recurrent fever please return to the emergency room. Print Language: Djib[place]ian Disposition Disposition: Home, Self Care
[2024-10-22] MEDS: Ipratropium/Albuterol Sulfate 3 ML AMPUL.NEB INHALATION (15:35)
[2024-10-22 15:40] VITALS: PULSE 80; RESP 16
[2024-10-22] MEDS: predniSONE 20 MG Tablet 60 MG PO (16:21)
[2024-10-22] MEDS: Azithromycin 250 MG Tablet 500 MG PO (16:21)
[2024-10-22] MEDS: Albuterol 2.5 MG/3 ML VIAL.NEB. INHALATION (16:24)
[2024-10-22 16:28] VITALS: PULSE 70; RESP 16
[2024-10-22 16:46] VITALS: BP 129/78; PULSE 72; RESP 18; TEMP 36.8; O2SAT 99
== END 2024-10-22 16:47 | disposition home or self-care (01) ==
PROVIDERS: Emergency Provider Emergency Medicine; PCP Nurse Practitioner Adult Health; Visit Provider Emergency Medicine
DX: J20.9 Acute bronchitis, unspecified (principal); J45.909 Unspecified asthma, uncomplicated
CPT/HCPCS: 71046; 94640; 99282

== ENCOUNTER 2025-01-17 10:18 | Emergency (ER) | payer MEDICAID, SELFPAY ==
[2025-01-17 10:19] VITALS: BP 118/61; PULSE 87; RESP 16; TEMP 36.4; O2SAT 99; BMI 40.3
--- NOTE | 2025-01-17 10:32 | EDS_ITS ---
HPI HPI - Female History of Present Illness Chief Complaint: Complaint PFSH PFS Medical History Asthma Premature ventricular contraction Chest pain, atypical Home Medications ?Medication ?Instructions ?Recorded ?Last Taken ?Type albuterol sulfate 90 mcg/actuation 1 - 2 puff inhalati on Q4H PRN PRN 10/17/23 Unknown Rx aerosol inhaler (Ventolin HFA) Wheezing 30 days #6.7 g christopher albuterol sulfate 90 mcg/actuation 1 - 2 puff inhalati on Q4H PRN PRN 10/22/24 Unknown Rx aerosol inhaler (Ventolin HFA) Wheezing #1 inh azithromycin 250 mg tablet 250 mg PO DAILY #4 TABLETS 10/22/24 Unknown Rx prednisone 20 mg tablet 40 mg (2 x 20 mg) PO DAILY # 8 tabs 10/22/24 Unknown Rx doxycycline hyclate 100 mg capsule 100 mg PO BID 7 day s #14 caps 01/17/25 Unknown Rx nitrofurantoin macrocrystal 100 mg 100 mg PO BID 7 day s #14 caps 01/17/25 Unknown Rx capsule Allergy/AdvReac Type Severity Reaction Status Date / Time coconut Allergy Hives Verified 01/17/25 10:21 diphenhydramine HCl (From Allergy Hives Verified 01/17/25 10:21 Benadryl) sweet potato Allergy Swelling Verified 01/17/25 10:21 sertraline (From Zoloft) AdvReac Other Verified 01/17/25 10:21 Family History Mother CVA (cerebral vascular accident) Surgical History H/O adenoidectomy History of section Social History Smoking Status: Never smoker alcohol intake: never substance use type: does not use caffeine: Yes Type: carbonated beverages Number of servings: 1 EXAM Physical Exam Const Vital Signs: 01/17/25 10:19 Temperature 97.6 F L Temperature Source Temporal Pulse Rate 87 Respiratory Rate 16 Blood Pressure 118/61 Blood Pressure Mean 80 Pulse Ox 99 Oxygen Delivery Method Room Air MDM MDM MDM Narrative Medical decision making narrative: HISTORY OF PRESENT ILLNESS: 34-year-old female presents with concern for UTI symptoms also concern for STI symptoms. Notes she has symptoms of UTI. Notes pressure with urination, cloudy urine. Abdominal for last 3 to 4 days. She notes over the weekend she had a sexual encounter with a new partner unprotected. She is concerned about STDs. No history of STDs. No vomiting or fever noted. No abdominal pain noted. De nies any lesions or rashes. REVIEW OF SYSTEMS: Pertinent positives: Dysuria Pertinent negatives: [Abdominal pain PHYSICAL EXAM: Nursing triage notes reviewed, Vital signs reviewed Constitutional: please see mdm HENT: MMM Eyes: Pupils equal round and reactive to light, Extraocular muscles intact Neck: No stridor, no JVD, full neck ROM Lungs: Clear to auscultation, No wheezing or rales. No increased work of breathing, no conversational dyspnea, no accessory muscle use, no nasal flaring. No respiratory distress noted Heart: Regular rate and rhythm, No murmurs, No rubs and No gallops, 2+ distal pulses (radial, femoral, posterior tibial) in all extremities Abdomen: Soft, there is no tenderness, rigidity, rebound or guarding, no obvious peritoneal signs, no palpable pulsatile abdominal masses, no auscultated abdominal bruit : No CVAT, pelvic exam deferred by patient will self swabbing Extremities: No edema MEDICAL DECISION MAKING: Chief Complaint: UTI concern for STI External records reviewed: Reviewed prior lab Factors affecting care: none Social determinants of health: Sexually active, unprotected History obtained from others: none Consults: none [facility] Narrative: Patient was initially hemodynamically stable, afebrile and nontoxic-appearing. Abdominal exam benign. Patient chose to self swab. I considered the following differential diagnosis: Urethritis, UTI Urine and vaginal swabs were obtained. Prophylactic ceftriaxone and doxycycline were given. ALL IMAGES (IF OBTAINED) HAVE BEEN PERSONALLY REVIEWED AND INTERPRETED BY MYSELF. UA with evidence of UTI will send culture. Awaiting gonorrhea chlamydia testing. Urine is negative. Will give doxycycline and nitrofurantoin to cover presumed UTI as well as STD. The patient and/or family, caregivers express understanding. The patient and/or family, caregivers agrees with the plan. Shared decision making: I will have a discussion with the patient and or visitors regarding risk/evelyn efits of further testing or admission. They will be made aware of of the risk/benefits inherent in this decision they will be given the opportunity to voice understanding. Total critical care time today provided was at least 0 minutes. This excludes separately billable procedures. Critical care time (if documented) is secondary to the patient having high probability of clinically significant/life threatening deterioration in the patient's condition which required my urgent intervention. Impression: 1. Dysuria 2. Encounter for STI testing Dispo: Discharge home This note was generated with [facility] dictation software. It may contain incorrect words, spelling, and punctuation that were not noted in review of the chart prior to signing. Lab Data Labs: Laboratory Results - last 24 hr 01/17/25 11:10 Urine Color Yellow Urine Clarity Clear Urine pH 5.0 Ur Specific [place] 1.025 Urine Protein 15 H Urine Glucose (UA) Normal Urine Ketones Negative Urine Occult Blood 250 H Urine Nitrite Positive H Urine Bilirubin Negative Urine Urobilinogen Normal Ur Leukocyte Esterase 100 H Urine RBC 25-50 SEEN Urine WBC 0-5 SEEN Ur Squamous Epith Cells 0 SEEN Urine Bacteria 0 SEEN Urine Mucus 0 SEEN Urine Test Negative Discharge Plan Triage Chief Complaint: Complaint ED Provider: Terrence Escoto Dx/Rx/DC Orders Instructions: ED Testing for Suspected STI, ED UTIs Women Prescriptions: New doxycycline hyclate 100 mg capsule 100 mg PO BID 7 Days Qty: 14 0RF nitrofurantoin macrocrystal 100 mg capsule 100 mg PO BID 7 Days Qty: 14 0RF Rx Instructions: must administer with a meal/food No Action albuterol sulfate [Ventolin HFA] 90 mcg/actuation HFA aerosol inhaler 1 - 2 puff inhalation Q4H PRN PRN (Reason: Wheezing) 30 Days Qty: 6.7 0RF albuterol sulfate [Ventolin HFA] 90 mcg/actuation HFA aerosol inhaler 1 - 2 puff inhalation Q4H PRN PRN (Reason: Wheezing) Qty: 1 0RF azithromycin 250 mg tablet 250 mg PO DAILY Qty: 4 0RF prednisone 20 mg tablet 40 mg PO DAILY Qty: 8 0RF Primary Care Provider: Daksha Mueller NP Referrals: Daksha Mueller NP, GEOPHYSICAL DRAFTER-C [Primary Care Provider] - Activity Restrictions/Additional Instructions: Thank you for trusting us with your care today! Your urinalysis was consistent with UTI. I will send your urine for culture. We will call if the antibiotic you are placed on does not cover your infection adequately Because you are concerned about STI I also wrote doxycycline for STI prophylaxis Please take Tylenol (2 pills, 650 mg), ibuprofen (2 pills, 400 mg) every 6 hours as needed for pain and fever control. Please return to the emergency department if your symptoms change or worsen. Please follow with your primary care physician for further outpatient evaluation and management. Print Language: Czech Disposition Disposition: Home, Self Care Discharge Date/Time: 01/17/25 11:56
[2025-01-17 11:17] LABS: Bacteria 0 SEEN /hpf (None Seen); Mucous, Urine 0 SEEN /hpf (<or=2+); Squamous Epithelial Cells - UA 0 SEEN /hpf (5-10)
[2025-01-17 11:18] LABS: Color, Urine Yellow (Yellow); Glucose, Dipstick Normal (Normal); Ketone-Dipstick Negative (Negative); Leukocyte Esterase-Dipstick 100 /ul (Negative); Nitrite-Dipstick Positive (Negative); Occult Blood-Urine 250 /ul (Negative); Protein-Dipstick 15 mg/dl (Negative); Specific Gravity, Urine 1.025 (1.002-1.030); Urine Bilirubin Dipstick Negative (Negative); Urine Clarity Clear (Clear); Urine Urobilinogen Normal (Normal)
[2025-01-17] MEDS: Doxycycline 100 MG CAPSULE PO (11:22)
[2025-01-17 11:30] LABS: Internal QC Validated? YES +Cl - CLEAR BKGD; Pregnancy, Urine Negative Negative; Red Blood Cells-Urine 25-50 SEEN /hpf (0-5); White Blood Cells 0-5 SEEN /hpf (0-5)
[2025-01-17] MEDS: Ceftriaxone 500 MG Vial IM (11:38)
== END 2025-01-17 11:56 | disposition home or self-care (01) ==
PROVIDERS: Emergency Provider Emergency Medicine; PCP Nurse Practitioner Adult Health; Visit Provider Emergency Medicine
DX: R30.0 Dysuria (principal); J45.909 Unspecified asthma, uncomplicated; Z11.3 Encounter for screening for infections with a predominantly sexual mode of transmission
CPT/HCPCS: 81001; 81025; 87491; 87591; 87661; 96372; 99282

== ENCOUNTER 2025-09-12 09:02 | Emergency (ER) | payer MEDICAID, SELFPAY ==
[2025-09-12 09:03] VITALS: BP 123/73; PULSE 77; RESP 16; TEMP 36.9; O2SAT 100; BMI 34.0
--- NOTE | 2025-09-12 09:09 | EDS_ITS ---
HPI HPI - URI History of Present Illness Chief Complaint: Cough Informant: patient Onset/Context/Timing Onset: Weeks (2) Context: Gradual Onset Timing: Continuous Quality: Tight Location: Chest Worsened by: - (Laying on my back) Relieved by: - (Nothing) Associated Symptoms Associated Symptoms: Positive for Nasal Congestion, Sinus Pressure, Nausea, Shortness of Breath and Productive Cough (Green and brown sputum); Negative for Headache, Myalgias, Vomiting, Diarrhea, Chest Pain or Hemoptysis Narrative Narrative: Patient presents with coughing congestion that has gotten worse over the past 2 weeks. Patient states that yesterday she started coughing up some green and brown sputum. Patient admits to some nasal congestion and sinus pressure. Patient also admits to some shortness of breath. Patient states she did have some nausea yesterday but denies any vomiting. Patient admits to some subjective fevers and chills a couple days ago. Patient also admits to a sore throat. Patient states her rhinorrhea is yellow. Patient is concerned that she has bacterial bronchitis or pneumonia. Patient states she has had this in the past. Prior similar symptoms: Yes ROS ROS ED Constitutional Constitutional ED: Reports chills, fever(s) and subjective Eyes Eyes: Denies blurry vision or change in vision ENT ENT ED: Reports rhinorrhea and sore throat Cardiovascular Cardiovascular: Denies chest pain or palpitations Respiratory/Chest Respiratory/Chest: Reports cough and dyspnea Gastrointestinal Gastrointestinal: Reports nausea; Denies vomiting Genitourinary Genitourinary ED: Denies dysuria or hematuria Musculoskeletal Musculoskeletal: Denies back pain or neck pain Integumentary Denies abscess or rash Neurologic Neurologic: Denies headache(s) or weakness Allergic/Immunologic Allergic/Immunologic ED: Denies mouth swelling or urticaria [facility] Medical History Asthma Premature ventricular contraction Chest pain, atypical Home Medications Medication Instructions Recorded Last Taken Type albuterol sulfate 90 mcg/actuation 1 - 2 puff inhalati on Q4H PRN PRN 09/12/25 Unknown Rx aerosol inhaler (Ventolin HFA) Wheezing ##1 Allergy/AdvReac Type Severity Reaction Status Date / Time coconut Allergy Hives Verified 09/12/25 09:05 diphenhydramine HCl (From Allergy Hives Verified 09/12/25 09:05 Benadryl) sweet potato Allergy Swelling Verified 09/12/25 09:05 sertraline (From Zoloft) AdvReac Other Verified 09/12/25 09:05 Family History Mother CVA (cerebral vascular accident) Surgical History H/O adenoidectomy History of section Social History Smoking Status: Never smoker alcohol intake: never substance use type: does not use caffeine: Yes Type: carbonated beverages Number of servings: 1 EXAM Physical Exam Const Vital Signs: 09/12/25 09:03 09/12/25 09:17 09/12/25 09:40 Temperature 98.4 F Temperature Source Oral Pulse Rate 77 86 Respiratory Rate 16 16 Respiratory Effort Short of Breath Respiratory Depth Normal Respiratory Pattern Normal Blood Pressure 123/73 H Blood Pressure Mean 89 Pulse Ox 100 Oxygen Delivery Method Room Air Room Air Positive well nourished and well developed Constitutional Narrative: BMI is 34.0. General Appearance ED: well developed and NAD HEENT Reports moist mucous membranes normocephalic Throat: posterior oropharynx normal Neck supple, no meningeal signs and no JVD Resp normal respiratory effort Auscultation: diminished lung sounds Cardio Rate: regular rate Rhythm: regular rhythm Neuro oriented x3, CN's II-XII intact bilaterally and no sensory deficits noted Sensorium / Orientation: alert Motor Exam: strength 5/5 throughout Psych mental status grossly normal MDM MDM MDM Narrative Medical decision making narrative: Differential diagnosis includes pneumonia, bronchitis, viral upper respiratory infection, and strep pharyngitis. Chest x-ray will be obtained to assess for pneumonia and bronchitis. COVID-19, influenza, and RSV PCR will be obtained to assess for viral illness. Rapid strep will be obtained to assess for strep pharyngitis. History & Record Review Additional record(s) reviewed:: Prior ED visit and Prior labs Lab Data Lab results narrative: Rapid strep was reviewed and was negative. COVID-19 PCR was reviewed and was negative. Influenza PCR was reviewed and was negative for influenza A and influenza B. RSV PCR was reviewed and was negative. Radiography Diagnostic Testing: Clinical Impression(s) from Imaging Studies Chest X-Ray 09/12/25 09:44 IMPRESSION: NO ACUTE FINDINGS. Reading Location: [facility] [place] and lateral chest x-ray was obtained. There are 2 views. On my independent interpretation, lung sylvester are clear. There is normal cardiac silhouette. Bony thorax is normal. There is no acute process noted. Radiologist also interpreted the x-ray and agrees. Treatment and Re-Evaluation Narrative: Patient was given a DuoNeb aerosol here. Patient was feeling better on reevaluation. Patient was advised of her findings. Patient was given prescription for an albuterol aerosol. Patient was instructed to follow-up with her primary care physician in 5 to 7 days. Patient was instructed to return if worse in any way. Patient understood and was agreeable with the plan. All questions were answered. Discharge Plan Triage Chief Complaint: Cough ED Provider: Varun Foss Dx/Rx/DC Orders Clinical Impression: Viral upper respiratory tract infection, Asthma Instructions: ED URI, Viral, No Abx (Adult) Prescriptions: New albuterol sulfate [Ventolin HFA] 90 mcg/actuation HFA aerosol inhaler 1 - 2 puff inhalation Q4H PRN PRN (Reason: Wheezing) Qty: 1 0RF Primary Care Provider: Daksha Mueller NP Referrals: Daksha Mueller NP, EFFICIENCY ENGINEER-C [Primary Care Provider, Medical] - 5-7 Days Print Language: Estonian Disposition Disposition: Home, Self Care
[2025-09-12 09:17] VITALS: O2SAT 98
[2025-09-12 09:40] VITALS: PULSE 86; RESP 16
--- NOTE | 2025-09-12 09:44 | RAD_ITS ---
PROCEDURE: CHEST PA AND LATERAL 09/12/2025 REASON FOR EXAM: COUGH TECHNIQUE: Procedure Code: RADCXR Modality: DX Procedure: CHEST PA AND LATERAL COMPARISON: October 22, 2024. FINDINGS: Hardware: None Heart: The heart size is normal. Mediastinum: The mediastinal contour is unremarkable. Lungs: The lungs are clear. Bones: The bones are unremarkable. RAD/Chest PA and Lateral IMPRESSION: NO ACUTE FINDINGS. Reading Location: [place] [id number]
[2025-09-12 10:55] VITALS: BP 120/78; PULSE 91; RESP 16; TEMP 36.6; O2SAT 97
== END 2025-09-12 10:56 | disposition home or self-care (01) ==
PROVIDERS: Emergency Provider Emergency Medicine; PCP Nurse Practitioner Adult Health; Visit Provider Emergency Medicine
DX: J06.9 Acute upper respiratory infection, unspecified (principal); J45.909 Unspecified asthma, uncomplicated
CPT/HCPCS: 71046; 87631; 87651; 94640; 99282